=== PATIENT | female | born 1935 | race African-American/Black ===

== ENCOUNTER 2020-12-15 15:46 | Inpatient (IN) | payer MEDICARE, MEDICAID ==
[~2020-12-15] VITALS: Ht 152.4 cm; Wt 68.0 kg
[2020-12-15] MEDS ORDERED: MORPHINE SULFATE 2 MG/ML CPJ (NOT FOR IM USE) IV ONE (16:30)
[2020-12-15] MEDS ORDERED: SODIUM CHLORIDE 0.9% 500 ML IV ONE (16:30)
[2020-12-15] MEDS ORDERED: ONDANSETRON HCL 4MG/2ML INJ IV ONE (16:30)
[2020-12-15] MEDS ORDERED: PIPERACILLIN/TAZ 3.375G PREMIX 50 ML IV ONE (16:30)
[2020-12-15 16:51] LABS: INR 1.2; PROTHROMBIN TIME 12.6 sec (9.6-11.0)
[2020-12-15 16:52] LABS: MEAN CORPUSCULAR HEMOGLOBIN 26.3 pg (28.0-32.0); MEAN CORPUSCULAR VOLUME 82.4 fL (81.0-99.0); MEAN PLATELET VOLUME 8.6 fl (7.4-10.4); PLATELET 416 x1000/uL (130-400); RED BLOOD CELL COUNT 2.12 mill/uL (4.2-5.4); RED CELL DISTRIBUTION WIDTH 13.9 % (11.6-14.6)
[2020-12-15 16:59] LABS: CHLORIDE 105 mEq/L (98-107)
[2020-12-15 17:02] LABS: HEMATOCRIT. 17.5 % (36.0-48.0); HEMOGLOBIN. 5.6 g/dL (12.0-16.0)
[2020-12-15] MEDS ORDERED: ACETAMINOPHEN 325MG TABLET PO ONE (17:15)
[2020-12-15 17:25] LABS: PLATELET ESTIMATE SLIGHTLY INCREASED
[2020-12-15] MEDS ORDERED: NITROGLYCERIN 0.4MG TABLET SL SL PRN (18:15)
[2020-12-15] MEDS ORDERED: TRAMADOL 50MG TABLET PO PRN (18:15)
[2020-12-15] MEDS ORDERED: CLONIDINE 0.1MG TABLET PO PRN (18:15)
[2020-12-15] MEDS ORDERED: ACETAMINOPHEN 325MG TABLET PO PRN ×2 (18:15)
[2020-12-15] MEDS ORDERED: SODIUM BICARBONATE 8.4% 1 MEQ/ML 50ML SYR IV ONE (18:15)
[2020-12-15] MEDS ORDERED: ONDANSETRON HCL 4MG/2ML INJ IV PRN (18:15)
[2020-12-15] MEDS ORDERED: MAGNESIUM/ALUMINUM HYDROXIDE/SIMETHICONE 30ML UDC PO PRN (18:15)
[2020-12-15] MEDS ORDERED: PIPERACILLIN/TAZ 3.375G PREMIX 50 ML IV SCH (18:15)
[2020-12-15] MEDS ORDERED: DEXTROSE 50% WATER 50ML SYRINGE IV PRN (18:15)
[2020-12-15] MEDS ORDERED: DOCUSATE SODIUM 100MG CAPSULE PO PRN (18:15)
[2020-12-15] MEDS ORDERED: IPRATROPIUM/ALBUTEROL 0.5-3(2.5)MG/3ML NEB NEB PRN (18:15)
[2020-12-15] MEDS ORDERED: GUAIFENESIN 200MG/10ML SUGAR FREE UDC PO PRN (18:15)
[2020-12-15] MEDS: INSULIN LISPRO 100 UNITS/ML SUBCUT SCH ×2 (18:20→21:00)
[2020-12-15] MEDS: SODIUM CHLORIDE 0.9% 1,000 ML IV SCH (18:47)
[2020-12-15 19:09] LABS: TOTAL IRON BINDING CAPACITY 85 ug/dL (250-450)
[2020-12-15 19:24] LABS: FOLIC ACID (FOLATE) SERUM 11.2 ng/mL (>5.38)
[2020-12-15] MEDS ORDERED: ZOLPIDEM TARTRATE 5MG TABLET PO PRN (20:00)
[2020-12-15] MEDS ORDERED: ENOXAPARIN 30MG/0.3ML SYR SUBCUT SCH (20:00)
[2020-12-15] MEDS ORDERED: VANCOMYCIN 1250MG in DEXTROSE 5% WATER 250ML IV SCH (20:00)
[2020-12-15] MEDS: FAMOTIDINE 20MG TABLET PO SCH (20:00)
[2020-12-15] MEDS: BLOOD SUGAR DIAGNOSTIC STRIP TEST SCH (21:00)
[2020-12-15] MEDS: ASCORBIC ACID 500 MG TABLET PO SCH (21:02)
[2020-12-15] MEDS: PIPERACILLIN/TAZOBACTAM 2.25 G in DEXTROSE 5% WATER 50 ML IV SCH (21:37)
[2020-12-16] VITALS (8 sets, daily range): BP systolic 126–169; BP diastolic 53–72
[2020-12-16 00:06] LABS: CREATINE KINASE 461 IU/L (26-192)
[2020-12-16 05:15] LABS: MEAN CORPUSCULAR HEMOGLOBIN 25.8 pg (28.0-32.0); MEAN CORPUSCULAR VOLUME 82.7 fL (81.0-99.0); MEAN PLATELET VOLUME 8.6 fl (7.4-10.4); PLATELET 405 x1000/uL (130-400); RED BLOOD CELL COUNT 2.34 mill/uL (4.2-5.4); RED CELL DISTRIBUTION WIDTH 14.1 % (11.6-14.6)
[2020-12-16 05:27] LABS: CHLORIDE 105 mEq/L (98-107)
[2020-12-16 05:34] LABS: HEMATOCRIT. 19.3 % (36.0-48.0)
[2020-12-16 05:36] LABS: PHOSPHORUS 5.1 mg/dL (2.5-4.9)
[2020-12-16 05:37] LABS: CREATINE KINASE 359 IU/L (26-192)
[2020-12-16 05:42] LABS: CREATINE KINASE MB FRACTION 5.8 ng/mL (0.5-3.6)
[2020-12-16] MEDS: PIPERACILLIN/TAZOBACTAM 2.25 G in DEXTROSE 5% WATER 50 ML IV SCH ×3 (06:00→21:46)
[2020-12-16] MEDS: BLOOD SUGAR DIAGNOSTIC STRIP TEST SCH ×5 (06:24→21:46)
[2020-12-16] MEDS: INSULIN LISPRO 100 UNITS/ML SUBCUT SCH ×4 (07:00→22:00)
[2020-12-16] MEDS: SODIUM CHLORIDE 0.9% 1,000 ML IV SCH ×3 (07:12→21:45)
[2020-12-16 07:20] LABS: PLATELET ESTIMATE SLIGHTLY INCREASED
[2020-12-16] MEDS: CHOLECALCIFEROL (D3) 1000 UNIT TABLET PO SCH (09:00)
[2020-12-16] MEDS ORDERED: SODIUM BICARBONATE 4% (2.4MEQ) 5ML VIAL IV ONE (09:05)
[2020-12-16] MEDS ORDERED: LIDOCAINE HCL 1% 20ML VIAL (Pyxis) INJ ONE (09:05)
[2020-12-16] MEDS: ZINC SULFATE 220 MG ( 50 ) CAPSULE PO SCH (09:24)
[2020-12-16] MEDS: ASCORBIC ACID 500 MG TABLET PO SCH ×2 (09:24→22:00)
[2020-12-16] MEDS ORDERED: BACITRACIN 15GM TUBE TOP ONE (16:17)
[2020-12-16] MEDS ORDERED: BACITRACIN 50,000 UNITS/VIAL ONE (16:17)
[2020-12-16] MEDS ORDERED: VANCOMYCIN HCL 1 GM/VIAL ONE ×2 (16:17→18:52)
[2020-12-16] MEDS ORDERED: BUPIVACAINE HCL 0.5% (5MG/ML) 50ML ONE (16:17)
[2020-12-16] MEDS ORDERED: SODIUM CHLORIDE 0.9% INJ 10ML FLUSH IVF ONE (16:18)
[2020-12-16 16:43] LABS: HEMATOCRIT. 39.7 % (36.0-48.0); HEMOGLOBIN. 13.2 g/dL (12.0-16.0); MEAN CORPUSCULAR HEMOGLOBIN 28.7 pg (28.0-32.0); MEAN CORPUSCULAR VOLUME 86.5 fL (81.0-99.0); MEAN PLATELET VOLUME 8.9 fl (7.4-10.4); PLATELET 340 x1000/uL (130-400); RED BLOOD CELL COUNT 4.58 mill/uL (4.2-5.4); RED CELL DISTRIBUTION WIDTH 15.3 % (11.6-14.6)
[2020-12-16] MEDS ORDERED: VANCOMYCIN 750 MG PREMIX 150 ML IV SCH (17:00)
[2020-12-16 17:16] LABS: PLATELET ESTIMATE NORMAL
[2020-12-16] MEDS ORDERED: VALS40TA11 MT (18:20)
[2020-12-16] MEDS ORDERED: AMLO2.5T45 MT (18:20)
[2020-12-16] MEDS ORDERED: FURO20TA4 MT (18:20)
[2020-12-16] MEDS ORDERED: LISI2.5T47 MT (18:20)
[2020-12-16] MEDS ORDERED: METO25TA6 MT (18:20)
[2020-12-16] MEDS ORDERED: ONDANSETRON HCL 4MG/2ML INJ IV PRN (19:30)
[2020-12-16] MEDS ORDERED: LABETALOL 5MG/ML SYR 20 MG/4 ML SYRINGE IV PRN (19:30)
[2020-12-16] MEDS ORDERED: MEPERIDINE HCL/PF 25MG/ML CPJ IV PRN (19:30)
[2020-12-16] MEDS: FAMOTIDINE 20MG TABLET PO SCH (20:00)
[2020-12-17] VITALS: BP 108/55
[2020-12-17 04:00] VITALS: BP 111/51
[2020-12-17] MEDS: PIPERACILLIN/TAZOBACTAM 2.25 G in DEXTROSE 5% WATER 50 ML IV SCH ×3 (05:20→21:37)
[2020-12-17] MEDS: BLOOD SUGAR DIAGNOSTIC STRIP TEST SCH ×4 (07:37→21:10)
[2020-12-17] MEDS: INSULIN LISPRO 100 UNITS/ML SUBCUT SCH ×4 (07:38→21:00)
[2020-12-17 08:29] VITALS: BP 118/55
[2020-12-17] MEDS: ZINC SULFATE 220 MG ( 50 ) CAPSULE PO SCH (09:09)
[2020-12-17] MEDS: ASCORBIC ACID 500 MG TABLET PO SCH ×2 (09:09→21:00)
[2020-12-17] MEDS: CHOLECALCIFEROL (D3) 1000 UNIT TABLET PO SCH (09:09)
[2020-12-17] MEDS: SODIUM CHLORIDE 0.9% 1,000 ML IV SCH ×2 (09:51→21:44)
[2020-12-17] MEDS ORDERED: TUBERCULIN,PURIF.PROT.DERIV. 5 TU/0.1 ML SYR ID ONE (10:00)
[2020-12-17 12:14] VITALS: BP 130/53
[2020-12-17 12:40] LABS: HEMATOCRIT. 30.7 % (36.0-48.0); HEMOGLOBIN. 10.1 g/dL (12.0-16.0); MEAN CORPUSCULAR HEMOGLOBIN 28.7 pg (28.0-32.0); MEAN CORPUSCULAR VOLUME 87.3 fL (81.0-99.0); MEAN PLATELET VOLUME 8.7 fl (7.4-10.4); PLATELET 313 x1000/uL (130-400); RED BLOOD CELL COUNT 3.52 mill/uL (4.2-5.4)
[2020-12-17 12:47] LABS: CHLORIDE 108 mEq/L (98-107)
[2020-12-17 13:29] LABS: HEPATITIS B SURFACE AB 3.3 mIU/mL
[2020-12-17 13:39] LABS: HEPATITIS B SURFACE ANTIGEN NEGATIVE
[2020-12-17 14:09] LABS: HEPATITIS A AB IGM NEGATIVE (NEGATIVE)
[2020-12-17 14:57] LABS: PLATELET ESTIMATE NORMAL
[2020-12-17 16:27] VITALS: BP 117/47
[2020-12-17 20:00] VITALS: BP 129/63
[2020-12-17] MEDS ORDERED: HEPARIN 5000 UNITS/ML VIAL IV NR (22:30)
[2020-12-18] VITALS: BP 114/43
[2020-12-18 04:00] VITALS: BP 124/62
[2020-12-18] MEDS: PIPERACILLIN/TAZOBACTAM 2.25 G in DEXTROSE 5% WATER 50 ML IV SCH ×3 (05:23→21:18)
[2020-12-18] MEDS: BLOOD SUGAR DIAGNOSTIC STRIP TEST SCH ×4 (06:45→21:10)
[2020-12-18] MEDS: INSULIN LISPRO 100 UNITS/ML SUBCUT SCH ×4 (06:46→21:00)
[2020-12-18 08:00] VITALS: BP 161/53
[2020-12-18 08:24] LABS: HEMOGLOBIN. 8.9 g/dL (12.0-16.0); MEAN CORPUSCULAR HEMOGLOBIN 29.1 pg (28.0-32.0); MEAN PLATELET VOLUME 9.5 fl (7.4-10.4); PLATELET 229 x1000/uL (130-400); RED BLOOD CELL COUNT 3.05 mill/uL (4.2-5.4); RED CELL DISTRIBUTION WIDTH 15.8 % (11.6-14.6)
[2020-12-18] MEDS: ASCORBIC ACID 500 MG TABLET PO SCH ×2 (11:41→21:18)
[2020-12-18] MEDS: CHOLECALCIFEROL (D3) 1000 UNIT TABLET PO SCH (11:41)
[2020-12-18] MEDS: ZINC SULFATE 220 MG ( 50 ) CAPSULE PO SCH (11:41)
[2020-12-18 12:00] VITALS: BP 106/54
[2020-12-18] MEDS: SODIUM CHLORIDE 0.9% 1,000 ML IV SCH (13:21)
[2020-12-18] MEDS: DILTIAZEM HCL 30MG TABLET PO SCH ×2 (13:30→21:19)
[2020-12-18 16:00] VITALS: BP 116/68
[2020-12-18 16:38] LABS: PLATELET ESTIMATE NORMAL
[2020-12-18 20:00] VITALS: BP 116/52
[2020-12-18] MEDS: FAMOTIDINE 20MG TABLET PO SCH (21:18)
[2020-12-19] VITALS: BP 105/53
[2020-12-19] MEDS: SODIUM CHLORIDE 0.9% 1,000 ML IV SCH ×2 (03:34→09:00)
[2020-12-19 04:00] VITALS: BP 110/52
[2020-12-19] MEDS: PIPERACILLIN/TAZOBACTAM 2.25 G in DEXTROSE 5% WATER 50 ML IV SCH ×2 (06:14→18:20)
[2020-12-19] MEDS: BLOOD SUGAR DIAGNOSTIC STRIP TEST SCH ×4 (06:14→21:00)
[2020-12-19] MEDS: DILTIAZEM HCL 30MG TABLET PO SCH ×3 (06:14→22:01)
[2020-12-19] MEDS: INSULIN LISPRO 100 UNITS/ML SUBCUT SCH ×4 (06:15→21:00)
[2020-12-19 06:20] LABS: HEMOGLOBIN. 9.2 g/dL (12.0-16.0); MEAN CORPUSCULAR HEMOGLOBIN 29.4 pg (28.0-32.0); MEAN CORPUSCULAR VOLUME 89.1 fL (81.0-99.0); PLATELET 258 x1000/uL (130-400); RED BLOOD CELL COUNT 3.14 mill/uL (4.2-5.4); RED CELL DISTRIBUTION WIDTH 15.8 % (11.6-14.6)
[2020-12-19 08:00] VITALS: BP 119/56
[2020-12-19] MEDS: ZINC SULFATE 220 MG ( 50 ) CAPSULE PO SCH (09:22)
[2020-12-19] MEDS: ASCORBIC ACID 500 MG TABLET PO SCH ×2 (09:22→22:00)
[2020-12-19] MEDS: CHOLECALCIFEROL (D3) 1000 UNIT TABLET PO SCH (09:22)
[2020-12-19 12:00] VITALS: BP 99/46
[2020-12-19 13:53] LABS: PLATELET ESTIMATE NORMAL
[2020-12-19] MEDS ORDERED: VANCOMYCIN 1 G PREMIX 200 ML IV SCH (14:00)
[2020-12-19 16:00] VITALS: BP 128/63
[2020-12-19] MEDS ORDERED: DIATR MEGLU/DIATRIZOATE SOLN 30ML PO SCH (16:45)
[2020-12-19] MEDS: METRONIDAZOLE 250MG TABLET PO SCH (18:17)
[2020-12-19 20:00] VITALS: BP 113/32
[2020-12-19] MEDS: FAMOTIDINE 20MG TABLET PO SCH ×2 (22:00→22:32)
[2020-12-19] MEDS: MEROPENEM 500 MG in SODIUM CHLORIDE 0.9% 50 ML IV SCH (22:00)
[2020-12-20] VITALS: BP 130/56
[2020-12-20] MEDS: METRONIDAZOLE 250MG TABLET PO SCH ×3 (00:24→14:30)
[2020-12-20 04:00] VITALS: BP 137/56
[2020-12-20] MEDS: DILTIAZEM HCL 30MG TABLET PO SCH ×3 (05:18→17:41)
[2020-12-20] MEDS: BLOOD SUGAR DIAGNOSTIC STRIP TEST SCH ×4 (06:13→21:00)
[2020-12-20] MEDS: ASCORBIC ACID 500 MG TABLET PO SCH ×2 (09:11→22:21)
[2020-12-20] MEDS: ZINC SULFATE 220 MG ( 50 ) CAPSULE PO SCH (09:11)
[2020-12-20] MEDS: CHOLECALCIFEROL (D3) 1000 UNIT TABLET PO SCH (09:11)
[2020-12-20] MEDS: INSULIN LISPRO 100 UNITS/ML SUBCUT SCH ×4 (09:13→21:00)
[2020-12-20] MEDS: SILDENAFIL CITRATE 20MG TABLET PO SCH ×2 (14:31→22:22)
[2020-12-20] MEDS: SODIUM CHLORIDE 0.9% 1,000 ML IV SCH (14:31)
[2020-12-20 15:36] LABS: HEMATOCRIT. 27.9 % (36.0-48.0); MEAN CORPUSCULAR HEMOGLOBIN 28.2 pg (28.0-32.0); MEAN CORPUSCULAR VOLUME 88.1 fL (81.0-99.0); MEAN PLATELET VOLUME 9.6 fl (7.4-10.4); PLATELET 233 x1000/uL (130-400); RED BLOOD CELL COUNT 3.17 mill/uL (4.2-5.4); RED CELL DISTRIBUTION WIDTH 15.9 % (11.6-14.6)
[2020-12-20 16:00] VITALS: BP 112/46
[2020-12-20] MEDS: VANCOMYCIN HCL 1000 MG/20 ML ORAL PO SCH (17:42)
[2020-12-20 17:45] LABS: NUCLEATED RED BLOOD CELLS 1 /100 WBC; PLATELET ESTIMATE NORMAL
[2020-12-20 20:00] VITALS: BP 129/72
[2020-12-20] MEDS: MEROPENEM 500 MG in SODIUM CHLORIDE 0.9% 50 ML IV SCH (22:19)
[2020-12-20] MEDS: FAMOTIDINE 20MG TABLET PO SCH (22:20)
[2020-12-20] MEDS: METRONIDAZOLE 500 MG PREMIX 100 ML IV SCH (22:21)
[2020-12-21] VITALS (7 sets, daily range): BP systolic 103–140; BP diastolic 42–57
[2020-12-21] MEDS: DILTIAZEM HCL 30MG TABLET PO SCH ×4 (00:23→17:37)
[2020-12-21] MEDS: VANCOMYCIN HCL 1000 MG/20 ML ORAL PO SCH ×4 (00:23→17:36)
[2020-12-21] MEDS: SILDENAFIL CITRATE 20MG TABLET PO SCH ×3 (07:41→21:03)
[2020-12-21] MEDS: BLOOD SUGAR DIAGNOSTIC STRIP TEST SCH ×4 (07:42→21:03)
[2020-12-21] MEDS: INSULIN LISPRO 100 UNITS/ML SUBCUT SCH ×4 (07:49→21:25)
[2020-12-21] MEDS: SODIUM CHLORIDE 0.9% 1,000 ML IV SCH (09:00)
[2020-12-21 09:43] LABS: HEMATOCRIT. 27.8 % (36.0-48.0); MEAN CORPUSCULAR HEMOGLOBIN 28.6 pg (28.0-32.0); MEAN CORPUSCULAR VOLUME 88.1 fL (81.0-99.0); MEAN PLATELET VOLUME 9.5 fl (7.4-10.4); PLATELET 233 x1000/uL (130-400); RED BLOOD CELL COUNT 3.15 mill/uL (4.2-5.4); RED CELL DISTRIBUTION WIDTH 15.5 % (11.6-14.6)
[2020-12-21] MEDS: ZINC SULFATE 220 MG ( 50 ) CAPSULE PO SCH (10:02)
[2020-12-21] MEDS: ASCORBIC ACID 500 MG TABLET PO SCH ×2 (10:02→21:02)
[2020-12-21] MEDS: METRONIDAZOLE 500 MG PREMIX 100 ML IV SCH ×2 (10:02→21:02)
[2020-12-21] MEDS: CHOLECALCIFEROL (D3) 1000 UNIT TABLET PO SCH (10:02)
[2020-12-21 13:36] LABS: PLATELET ESTIMATE NORMAL
[2020-12-21] MEDS: FOLIC ACID/VITAMIN B COMP W-C TABLET PO SCH (15:20)
[2020-12-21] MEDS: MEROPENEM 500 MG in SODIUM CHLORIDE 0.9% 50 ML IV SCH ×2 (17:37→21:02)
[2020-12-21] MEDS: FAMOTIDINE 20MG TABLET PO SCH (21:02)
[2020-12-22] VITALS: BP 120/85
[2020-12-22] MEDS: DILTIAZEM HCL 30MG TABLET PO SCH ×4 (00:09→18:31)
[2020-12-22] MEDS: VANCOMYCIN HCL 1000 MG/20 ML ORAL PO SCH ×4 (00:09→22:05)
[2020-12-22 04:00] VITALS: BP 124/56
[2020-12-22] MEDS: SILDENAFIL CITRATE 20MG TABLET PO SCH ×3 (06:13→22:07)
[2020-12-22] MEDS: BLOOD SUGAR DIAGNOSTIC STRIP TEST SCH ×4 (06:13→21:00)
[2020-12-22] MEDS: INSULIN LISPRO 100 UNITS/ML SUBCUT SCH ×4 (07:40→21:00)
[2020-12-22 09:13] VITALS: BP 129/56
[2020-12-22] MEDS: METRONIDAZOLE 500 MG PREMIX 100 ML IV SCH (10:25)
[2020-12-22] MEDS: SODIUM CHLORIDE 0.9% 1,000 ML IV SCH (10:25)
[2020-12-22] MEDS: FOLIC ACID/VITAMIN B COMP W-C TABLET PO SCH (10:27)
[2020-12-22] MEDS: ZINC SULFATE 220 MG ( 50 ) CAPSULE PO SCH (10:27)
[2020-12-22] MEDS: CHOLECALCIFEROL (D3) 1000 UNIT TABLET PO SCH (10:27)
[2020-12-22] MEDS: ASCORBIC ACID 500 MG TABLET PO SCH ×2 (10:27→22:07)
[2020-12-22 11:52] LABS: HEMOGLOBIN. 8.2 g/dL (12.0-16.0); MEAN CORPUSCULAR HEMOGLOBIN 28.4 pg (28.0-32.0); MEAN CORPUSCULAR VOLUME 86.2 fL (81.0-99.0); MEAN PLATELET VOLUME 9.2 fl (7.4-10.4); PLATELET 217 x1000/uL (130-400); RED CELL DISTRIBUTION WIDTH 15.4 % (11.6-14.6)
[2020-12-22 12:00] VITALS: BP_SYST 145; BP_SYST 152; BP_DIAS 56; BP_DIAS 65
[2020-12-22 14:47] LABS: PLATELET ESTIMATE NORMAL
[2020-12-22 20:00] VITALS: BP 134/54
[2020-12-22] MEDS: FAMOTIDINE 20MG TABLET PO SCH (22:07)
[2020-12-22] MEDS: MEROPENEM 500 MG in SODIUM CHLORIDE 0.9% 50 ML IV SCH (22:13)
[2020-12-23] VITALS: BP 141/57
[2020-12-23] MEDS: METRONIDAZOLE 500 MG PREMIX 100 ML IV SCH ×2 (01:01→11:53)
[2020-12-23] MEDS: DILTIAZEM HCL 30MG TABLET PO SCH ×4 (01:01→17:33)
[2020-12-23 04:00] VITALS: BP 140/71
[2020-12-23 07:09] LABS: HEMATOCRIT. 23.9 % (36.0-48.0); HEMOGLOBIN. 7.7 g/dL (12.0-16.0); MEAN CORPUSCULAR HEMOGLOBIN 28.4 pg (28.0-32.0); MEAN PLATELET VOLUME 9.5 fl (7.4-10.4); PLATELET 210 x1000/uL (130-400); RED BLOOD CELL COUNT 2.72 mill/uL (4.2-5.4); RED CELL DISTRIBUTION WIDTH 15.8 % (11.6-14.6)
[2020-12-23] MEDS: BLOOD SUGAR DIAGNOSTIC STRIP TEST SCH ×4 (07:13→21:08)
[2020-12-23] MEDS: SILDENAFIL CITRATE 20MG TABLET PO SCH ×3 (07:14→21:07)
[2020-12-23] MEDS: INSULIN LISPRO 100 UNITS/ML SUBCUT SCH ×4 (07:25→21:00)
[2020-12-23 08:10] VITALS: BP 119/75
[2020-12-23] MEDS: CHOLECALCIFEROL (D3) 1000 UNIT TABLET PO SCH (11:52)
[2020-12-23] MEDS: ZINC SULFATE 220 MG ( 50 ) CAPSULE PO SCH (11:53)
[2020-12-23] MEDS: FOLIC ACID/VITAMIN B COMP W-C TABLET PO SCH (11:53)
[2020-12-23] MEDS: LOSARTAN POTASSIUM 50 MG TABLET PO SCH ×2 (11:53→21:07)
[2020-12-23] MEDS: ASCORBIC ACID 500 MG TABLET PO SCH ×2 (11:53→21:08)
[2020-12-23] MEDS: SODIUM CHLORIDE 0.9% 1,000 ML IV SCH (11:54)
[2020-12-23 12:00] VITALS: BP 155/57
[2020-12-23] MEDS: VANCOMYCIN HCL 1000 MG/20 ML ORAL PO SCH ×3 (15:10→17:31)
[2020-12-23 15:21] LABS: PLATELET ESTIMATE NORMAL
[2020-12-23 16:00] VITALS: BP 136/96
[2020-12-23 20:00] VITALS: BP 148/60
[2020-12-23] MEDS: FAMOTIDINE 20MG TABLET PO SCH (21:08)
[2020-12-24] VITALS: BP 139/60
[2020-12-24] MEDS: DILTIAZEM HCL 30MG TABLET PO SCH ×5 (00:15→23:43)
[2020-12-24] MEDS: VANCOMYCIN HCL 1000 MG/20 ML ORAL PO SCH ×5 (00:15→23:43)
[2020-12-24 04:00] VITALS: BP 119/74
[2020-12-24] MEDS: SILDENAFIL CITRATE 20MG TABLET PO SCH ×3 (06:11→23:42)
[2020-12-24] MEDS: BLOOD SUGAR DIAGNOSTIC STRIP TEST SCH ×4 (06:53→20:29)
[2020-12-24] MEDS: INSULIN LISPRO 100 UNITS/ML SUBCUT SCH ×5 (06:53→20:29)
[2020-12-24 07:41] LABS: HEMATOCRIT. 23.9 % (36.0-48.0); HEMOGLOBIN. 7.9 g/dL (12.0-16.0); MEAN CORPUSCULAR HEMOGLOBIN 28.6 pg (28.0-32.0); MEAN CORPUSCULAR VOLUME 87.1 fL (81.0-99.0); MEAN PLATELET VOLUME 9.5 fl (7.4-10.4); PLATELET 206 x1000/uL (130-400); RED BLOOD CELL COUNT 2.75 mill/uL (4.2-5.4); RED CELL DISTRIBUTION WIDTH 15.6 % (11.6-14.6)
[2020-12-24 08:00] VITALS: BP 141/63
[2020-12-24] MEDS: FOLIC ACID/VITAMIN B COMP W-C TABLET PO SCH (09:42)
[2020-12-24] MEDS: ASCORBIC ACID 500 MG TABLET PO SCH ×2 (09:42→23:41)
[2020-12-24] MEDS: CHOLECALCIFEROL (D3) 1000 UNIT TABLET PO SCH (09:43)
[2020-12-24] MEDS: ZINC SULFATE 220 MG ( 50 ) CAPSULE PO SCH (09:43)
[2020-12-24] MEDS: LOSARTAN POTASSIUM 50 MG TABLET PO SCH ×2 (09:46→21:00)
[2020-12-24] MEDS: SODIUM CHLORIDE 0.9% 1,000 ML IV SCH (10:36)
[2020-12-24 12:00] VITALS: BP 169/76
[2020-12-24 16:00] VITALS: BP 122/65
[2020-12-24 20:00] VITALS: BP 104/43
[2020-12-24] MEDS ORDERED: EPOETIN ALFA 10000UNITS/ML VIAL SUBCUT ONE (20:45)
[2020-12-24] MEDS ORDERED: EPOETIN ALFA-EPBX 10,000 UNIT/ML VIAL SUBCUT NR (22:00)
[2020-12-24] MEDS: MEROPENEM 500 MG in SODIUM CHLORIDE 0.9% 50 ML IV SCH (23:08)
[2020-12-24] MEDS: FAMOTIDINE 20MG TABLET PO SCH (23:42)
[2020-12-25] VITALS: BP 118/70
[2020-12-25 04:00] VITALS: BP 120/70
[2020-12-25] MEDS: BLOOD SUGAR DIAGNOSTIC STRIP TEST SCH ×4 (05:57→20:53)
[2020-12-25] MEDS: INSULIN LISPRO 100 UNITS/ML SUBCUT SCH ×4 (07:40→20:45)
[2020-12-25 08:00] VITALS: BP 137/58
[2020-12-25] MEDS: ZINC SULFATE 220 MG ( 50 ) CAPSULE PO SCH (08:39)
[2020-12-25] MEDS: CHOLECALCIFEROL (D3) 1000 UNIT TABLET PO SCH (08:39)
[2020-12-25] MEDS: LOSARTAN POTASSIUM 50 MG TABLET PO SCH ×2 (08:39→20:38)
[2020-12-25] MEDS: FOLIC ACID/VITAMIN B COMP W-C TABLET PO SCH (08:39)
[2020-12-25] MEDS: ASCORBIC ACID 500 MG TABLET PO SCH ×2 (08:44→20:38)
[2020-12-25] MEDS: SODIUM CHLORIDE 0.9% 1,000 ML IV SCH (08:49)
[2020-12-25 12:00] VITALS: BP 163/68
[2020-12-25] MEDS: DILTIAZEM HCL 30MG TABLET PO SCH ×2 (12:25→17:26)
[2020-12-25] MEDS: VANCOMYCIN HCL 1000 MG/20 ML ORAL PO SCH ×2 (12:28→17:28)
[2020-12-25] MEDS: SILDENAFIL CITRATE 20MG TABLET PO SCH ×2 (14:19→21:00)
[2020-12-25 16:00] VITALS: BP 145/70
[2020-12-25 20:00] VITALS: BP 165/82
[2020-12-25 20:23] LABS: PLATELET ESTIMATE NORMAL
[2020-12-25] MEDS: FAMOTIDINE 20MG TABLET PO SCH (20:38)
[2020-12-25] MEDS: MEROPENEM 500 MG in SODIUM CHLORIDE 0.9% 50 ML IV SCH (20:38)
[2020-12-26] VITALS: BP 130/73
[2020-12-26] MEDS: DILTIAZEM HCL 30MG TABLET PO SCH ×2 (01:52→06:18)
[2020-12-26] MEDS: VANCOMYCIN HCL 1000 MG/20 ML ORAL PO SCH ×3 (01:55→12:37)
[2020-12-26 04:00] VITALS: BP 178/71
[2020-12-26] MEDS: SILDENAFIL CITRATE 20MG TABLET PO SCH ×3 (06:17→21:40)
[2020-12-26] MEDS: BLOOD SUGAR DIAGNOSTIC STRIP TEST SCH ×4 (06:18→20:49)
[2020-12-26] MEDS: INSULIN LISPRO 100 UNITS/ML SUBCUT SCH ×4 (06:18→21:00)
[2020-12-26 07:35] LABS: HEMATOCRIT. 22.6 % (36.0-48.0); HEMOGLOBIN. 7.4 g/dL (12.0-16.0); MEAN CORPUSCULAR HEMOGLOBIN 28.3 pg (28.0-32.0); PLATELET 176 x1000/uL (130-400); RED BLOOD CELL COUNT 2.63 mill/uL (4.2-5.4); RED CELL DISTRIBUTION WIDTH 15.7 % (11.6-14.6)
[2020-12-26 08:00] VITALS: BP 158/92
[2020-12-26] MEDS: FOLIC ACID/VITAMIN B COMP W-C TABLET PO SCH (09:29)
[2020-12-26] MEDS: LOSARTAN POTASSIUM 50 MG TABLET PO SCH ×2 (09:30→20:49)
[2020-12-26] MEDS: CHOLECALCIFEROL (D3) 1000 UNIT TABLET PO SCH (09:30)
[2020-12-26] MEDS: ZINC SULFATE 220 MG ( 50 ) CAPSULE PO SCH (09:30)
[2020-12-26] MEDS: ASCORBIC ACID 500 MG TABLET PO SCH ×2 (09:30→20:49)
[2020-12-26 12:00] VITALS: BP 167/75
[2020-12-26] MEDS: DILTIAZEM HCL 60MG TABLET NG SCH ×2 (12:37→18:15)
[2020-12-26 14:28] LABS: PLATELET ESTIMATE NORMAL
[2020-12-26 16:00] VITALS: BP 171/83
[2020-12-26 20:00] VITALS: BP 152/59
[2020-12-26] MEDS: MEROPENEM 500 MG in SODIUM CHLORIDE 0.9% 50 ML IV SCH (20:49)
[2020-12-26] MEDS: FAMOTIDINE 20MG TABLET PO SCH (20:49)
[2020-12-27] VITALS: BP 128/80
[2020-12-27] MEDS: DILTIAZEM HCL 60MG TABLET NG SCH ×4 (00:38→19:54)
[2020-12-27 04:00] VITALS: BP 159/52
[2020-12-27] MEDS: SILDENAFIL CITRATE 20MG TABLET PO SCH ×3 (06:27→21:56)
[2020-12-27] MEDS: BLOOD SUGAR DIAGNOSTIC STRIP TEST SCH ×4 (06:28→21:00)
[2020-12-27] MEDS: INSULIN LISPRO 100 UNITS/ML SUBCUT SCH ×4 (07:40→22:02)
[2020-12-27 08:00] VITALS: BP 156/58
[2020-12-27] MEDS: LOSARTAN POTASSIUM 50 MG TABLET PO SCH ×2 (09:03→21:56)
[2020-12-27] MEDS: FOLIC ACID/VITAMIN B COMP W-C TABLET PO SCH (09:03)
[2020-12-27] MEDS: ASCORBIC ACID 500 MG TABLET PO SCH ×2 (09:03→21:56)
[2020-12-27] MEDS: CHOLECALCIFEROL (D3) 1000 UNIT TABLET PO SCH (09:03)
[2020-12-27] MEDS: ZINC SULFATE 220 MG ( 50 ) CAPSULE PO SCH (09:03)
[2020-12-27 11:28] LABS: BASOPHILS % 0.3 % (0.0-2.0); EOSINOPHILS % 0.3 % (0.0-5.0); HEMATOCRIT. 23.1 % (36.0-48.0); HEMOGLOBIN. 7.7 g/dL (12.0-16.0); LYMPHOCYTES % 9.3 % (20.0-50.0); MEAN CORPUSCULAR HEMOGLOBIN 28.5 pg (28.0-32.0); MEAN CORPUSCULAR VOLUME 85.8 fL (81.0-99.0); MEAN PLATELET VOLUME 9.7 fl (7.4-10.4); MONOCYTES % 4.9 % (2.0-8.0); NEUTROPHILS % 85.2 % (40.0-76.0); PLATELET 161 x1000/uL (130-400); RED CELL DISTRIBUTION WIDTH 15.7 % (11.6-14.6)
[2020-12-27 11:55] LABS: CHLORIDE 110 mEq/L (98-107)
[2020-12-27 12:00] VITALS: BP 99/63
[2020-12-27 16:00] VITALS: BP 151/71
[2020-12-27 20:00] VITALS: BP 145/60
[2020-12-27] MEDS: FAMOTIDINE 20MG TABLET PO SCH (21:56)
[2020-12-28] VITALS: BP 138/66
[2020-12-28] MEDS: DILTIAZEM HCL 60MG TABLET NG SCH ×5 (02:06→21:14)
[2020-12-28 04:40] VITALS: BP 125/70
[2020-12-28] MEDS: BLOOD SUGAR DIAGNOSTIC STRIP TEST SCH ×4 (04:55→19:53)
[2020-12-28] MEDS: INSULIN LISPRO 100 UNITS/ML SUBCUT SCH ×4 (05:10→21:00)
[2020-12-28 06:28] LABS: BASOPHILS % 0.5 % (0.0-2.0); EOSINOPHILS % 0.6 % (0.0-5.0); HEMATOCRIT. 23.6 % (36.0-48.0); HEMOGLOBIN. 7.7 g/dL (12.0-16.0); MEAN CORPUSCULAR HEMOGLOBIN 28.4 pg (28.0-32.0); MEAN CORPUSCULAR VOLUME 87.1 fL (81.0-99.0); MEAN PLATELET VOLUME 10.1 fl (7.4-10.4); MONOCYTES % 5.6 % (2.0-8.0); NEUTROPHILS % 81.3 % (40.0-76.0); PLATELET 190 x1000/uL (130-400); RED BLOOD CELL COUNT 2.71 mill/uL (4.2-5.4); RED CELL DISTRIBUTION WIDTH 16.3 % (11.6-14.6)
[2020-12-28] MEDS: SILDENAFIL CITRATE 20MG TABLET PO SCH ×3 (06:29→21:14)
[2020-12-28 08:00] VITALS: BP 148/68
[2020-12-28] MEDS: LOSARTAN POTASSIUM 50 MG TABLET PO SCH ×2 (09:00→21:19)
[2020-12-28] MEDS: CHOLECALCIFEROL (D3) 1000 UNIT TABLET PO SCH (10:24)
[2020-12-28] MEDS: FOLIC ACID/VITAMIN B COMP W-C TABLET PO SCH (10:24)
[2020-12-28] MEDS: ASCORBIC ACID 500 MG TABLET PO SCH ×2 (10:24→21:19)
[2020-12-28] MEDS: ZINC SULFATE 220 MG ( 50 ) CAPSULE PO SCH (10:24)
[2020-12-28 12:00] VITALS: BP 145/60
[2020-12-28] MEDS ORDERED: EPOETIN ALFA-EPBX 4,000 UNIT/ML VIAL SUBCUT NR (15:00)
[2020-12-28 16:00] VITALS: BP 141/68
[2020-12-28 20:00] VITALS: BP 150/66
[2020-12-28] MEDS: FAMOTIDINE 20MG TABLET PO SCH (21:19)
[2020-12-29] VITALS: BP 149/66
[2020-12-29] MEDS: VANCOMYCIN HCL 1000 MG/20 ML ORAL PO SCH ×3 (01:04→12:19)
[2020-12-29 04:00] VITALS: BP 146/80
[2020-12-29] MEDS: BLOOD SUGAR DIAGNOSTIC STRIP TEST SCH ×2 (04:58→12:19)
[2020-12-29] MEDS: SILDENAFIL CITRATE 20MG TABLET PO SCH ×2 (05:03→14:00)
[2020-12-29] MEDS: DILTIAZEM HCL 60MG TABLET NG SCH (05:03)
[2020-12-29] MEDS: INSULIN LISPRO 100 UNITS/ML SUBCUT SCH ×2 (05:13→12:40)
[2020-12-29 07:18] LABS: HEMATOCRIT. 22.4 % (36.0-48.0); HEMOGLOBIN. 7.3 g/dL (12.0-16.0); MEAN CORPUSCULAR HEMOGLOBIN 28.3 pg (28.0-32.0); MEAN CORPUSCULAR VOLUME 86.4 fL (81.0-99.0); MEAN PLATELET VOLUME 9.7 fl (7.4-10.4); PLATELET 170 x1000/uL (130-400)
[2020-12-29] MEDS ORDERED: SODIUM BICARBONATE 4% (2.4MEQ) 5ML VIAL IV ONE (07:59)
[2020-12-29] MEDS ORDERED: LIDOCAINE HCL 1% 20ML VIAL (Pyxis) INJ ONE (07:59)
[2020-12-29 08:00] VITALS: BP 143/64
[2020-12-29] MEDS ORDERED: EPOETIN ALFA 10000UNITS/ML VIAL SUBCUT SCH (09:00)
[2020-12-29] MEDS ORDERED: POTASSIUM CHLORIDE 20MEQ TABLET SR PO NR (09:00)
[2020-12-29] MEDS: ASCORBIC ACID 500 MG TABLET PO SCH (09:50)
[2020-12-29] MEDS: ZINC SULFATE 220 MG ( 50 ) CAPSULE PO SCH (09:51)
[2020-12-29] MEDS: FOLIC ACID/VITAMIN B COMP W-C TABLET PO SCH (09:51)
[2020-12-29] MEDS: LOSARTAN POTASSIUM 50 MG TABLET PO SCH (09:51)
[2020-12-29] MEDS: CHOLECALCIFEROL (D3) 1000 UNIT TABLET PO SCH (09:51)
[2020-12-29 12:00] VITALS: BP 164/52
[2020-12-29 13:26] VITALS: BP 164/52
[2020-12-29 19:33] LABS: PLATELET ESTIMATE NORMAL
[2020-12-30] MEDS ORDERED: DILTIAZEM HCL 180MG CAPSULE CD 24HR PO SCH (09:00)
[2020-12-31] MEDS ORDERED: EPOETIN ALFA 10000UNITS/ML VIAL SUBCUT SCH (21:00)
== END 2020-12-29 15:00 | DRG 853 ==
LOC: ER 15:46 → MICUSO 17:38 → SUPCPDRO 19:39 → 8WST 12-16 11:35
PROVIDERS: ADMIT Internal Medicine; ATTEND Internal Medicine
PROC: 30233N1 Transfusion of Nonautologous Red Blood Cells into Peripheral Vein, Percutaneous Approach (ICD-10-PCS; 2020-12-16)
PROC: 05HM33Z Insertion of Infusion Device into Right Internal Jugular Vein, Percutaneous Approach (ICD-10-PCS; 2020-12-16)
PROC: B543ZZA Ultrasonography of Right Jugular Veins, Guidance (ICD-10-PCS; 2020-12-16)
PROC: 5A1D70Z Performance of Urinary Filtration, Intermittent, Less than 6 Hours Per Day (ICD-10-PCS; 2020-12-19)
PROC: 0Y6H0Z3 Detachment at Right Lower Leg, Low, Open Approach (ICD-10-PCS; principal; 2020-12-20)
PROC: 2W3LX2Z Immobilization of Right Lower Extremity using Cast (ICD-10-PCS; 2020-12-20)
DX: A41.9 Sepsis, unspecified organism (principal); A48.0 Gas gangrene; E43 Unspecified severe protein-calorie malnutrition; J69.0 Pneumonitis due to inhalation of food and vomit; M72.6 Necrotizing fasciitis; N17.0 Acute kidney failure with tubular necrosis; N18.6 End stage renal disease; G92 Toxic encephalopathy; E11.52 Type 2 diabetes mellitus with diabetic peripheral angiopathy with gangrene; E87.2 Acidosis; I82.501 Chronic embolism and thrombosis of unspecified deep veins of right lower extremity; J91.8 Pleural effusion in other conditions classified elsewhere; T79.7XXA Traumatic subcutaneous emphysema, initial encounter; I12.0 Hypertensive chronic kidney disease with stage 5 chronic kidney disease or end stage renal disease; R65.20 Severe sepsis without septic shock; D64.9 Anemia, unspecified; R19.7 Diarrhea, unspecified; D63.1 Anemia in chronic kidney disease; E83.51 Hypocalcemia; E87.6 Hypokalemia; F03.90 Unspecified dementia, unspecified severity, without behavioral disturbance, psychotic disturbance, mood disturbance, and anxiety; I25.10 Atherosclerotic heart disease of native coronary artery without angina pectoris; I27.21 Secondary pulmonary arterial hypertension; I44.0 Atrioventricular block, first degree; I48.0 Paroxysmal atrial fibrillation; I49.1 Atrial premature depolarization; I99.8 Other disorder of circulatory system; E11.22 Type 2 diabetes mellitus with diabetic chronic kidney disease; K57.90 Diverticulosis of intestine, part unspecified, without perforation or abscess without bleeding; Z20.822 Contact with and (suspected) exposure to COVID-19; R47.02 Dysphasia; Z68.29 Body mass index [BMI] 29.0-29.9, adult; Z79.4 Long term (current) use of insulin; Z79.899 Other long term (current) drug therapy; Z89.511 Acquired absence of right leg below knee; Z99.2 Dependence on renal dialysis
CPT/HCPCS: 36415; 36556; 71045; 73600; 73620; 74176; 76770; 76937; 80048; 80053; 80202; 82040; 82270; 82550; 82553; 82607; 82728; 82746; 82962; 83036; 83540; 83550; 83605; 83735; 83880; 83970; 84100; 84134; 84145; 84484; 85025; 85651; 86140; 86703; 86705; 86706; 86709; 86803; 86850; 86900; 86920; 87340; 87426; 88307; 88311; 90585; 92610; 93005; 93306; 93923; 93970; 99291; C1752; C1893; J0885; J1642; J1644; J1650; J1815; J2175; J2185; J2270; J2405; J2543; J3370; J3490; J7030; J7040; J7060; P9016; Q9963

== ENCOUNTER 2021-01-17 13:19 | Inpatient (IN) | payer MEDICAID, MEDICARE ==
[~2021-01-17] VITALS: Ht 165.1 cm; Wt 62.1 kg
[~2021-01-17 13:19] MED LIST: AMLO2.5T45 MT; FURO20TA4 MT; LISI2.5T47 MT; METO25TA6 MT; VALS40TA11 MT
[2021-01-17] MEDS ORDERED: LORAZEPAM 2MG/ML CPJ IV ONE (13:45)
[2021-01-17] MEDS ORDERED: AMLODIPINE 5MG TABLET PO SCH (14:00)
[2021-01-17 14:30] LABS: BASOPHILS % 0.6 % (0.0-2.0); EOSINOPHILS % 0.3 % (0.0-5.0); HEMATOCRIT. 25.1 % (36.0-48.0); HEMOGLOBIN. 8.1 g/dL (12.0-16.0); LYMPHOCYTES % 19.8 % (20.0-50.0); MEAN CORPUSCULAR VOLUME 83.8 fL (81.0-99.0); MEAN PLATELET VOLUME 8.4 fl (7.4-10.4); MONOCYTES % 3.2 % (2.0-8.0); NEUTROPHILS % 76.1 % (40.0-76.0); PLATELET 171 x1000/uL (130-400); RED BLOOD CELL COUNT 2.99 mill/uL (4.2-5.4); RED CELL DISTRIBUTION WIDTH 19.2 % (11.6-14.6)
[2021-01-17 14:36] LABS: CHLORIDE 113 mEq/L (98-107)
[2021-01-17 14:39] LABS: INR 1.1; PARTIAL THROMBOPLASTIN TIME 27.6 sec (23.4-31.0); PROTHROMBIN TIME 12.2 sec (9.6-11.0)
[2021-01-17] MEDS ORDERED: SODIUM BICARBONATE 4% (2.4MEQ) 5ML VIAL IV ONE (14:44)
[2021-01-17] MEDS ORDERED: LIDOCAINE HCL 1% 20ML VIAL (Pyxis) INJ ONE (14:44)
[2021-01-17] MEDS: LOSARTAN POTASSIUM 50 MG TABLET PO SCH ×2 (14:46→17:00)
[2021-01-17] MEDS ORDERED: PIPERACILLIN/TAZ 3.375G PREMIX 50 ML IV ONE (15:15)
[2021-01-17] MEDS ORDERED: VANCOMYCIN 1 G PREMIX 200 ML IV ONE (15:15)
[2021-01-17 15:52] LABS: CLARITY URINE CLEAR (CLEAR); COLOR URINE YELLOW (YELLOW); KETONES URINE NEGATIVE (NEGATIVE); LEUKOCYTE ESTERASE URINE NEGATIVE (NEGATIVE); NITRITE URINE NEGATIVE (NEGATIVE); OCCULT BLOOD URINE NEGATIVE (NEGATIVE); PH URINE 6.5 (4.5-8.0); PROTEIN URINE 2+ (NEGATIVE); SPECIFIC GRAVITY URINE 1.011 (1.005-1.030); UROBILINOGEN URINE 0.2 E.U./dL (0.2-1.0)
[2021-01-17 15:54] LABS: CHLORIDE 113 mEq/L (98-107)
[2021-01-17 15:59] LABS: PHOSPHORUS 4.4 mg/dL (2.5-4.9)
[2021-01-17] MEDS ORDERED: ONDANSETRON HCL 4MG/2ML INJ IV PRN (16:00)
[2021-01-17] MEDS ORDERED: GUAIFENESIN 200MG/10ML SUGAR FREE UDC PO PRN (16:00)
[2021-01-17] MEDS ORDERED: ACETAMINOPHEN 325MG TABLET PO PRN (16:00)
[2021-01-17] MEDS ORDERED: NITROGLYCERIN 0.4MG TABLET SL SL PRN (16:00)
[2021-01-17] MEDS ORDERED: ZOLPIDEM TARTRATE 5MG TABLET PO PRN (16:00)
[2021-01-17] MEDS ORDERED: DOCUSATE SODIUM 100MG CAPSULE PO PRN (16:00)
[2021-01-17] MEDS ORDERED: MAGNESIUM/ALUMINUM HYDROXIDE/SIMETHICONE 30ML UDC PO PRN (16:00)
[2021-01-17] MEDS ORDERED: IPRATROPIUM/ALBUTEROL 0.5-3(2.5)MG/3ML NEB NEB PRN (16:00)
[2021-01-17 16:35] LABS: HEPATITIS B SURFACE ANTIGEN NEGATIVE
[2021-01-17] MEDS: BLOOD SUGAR DIAGNOSTIC STRIP TEST SCH ×2 (17:00→21:00)
[2021-01-17] MEDS ORDERED: SEVELAMER CARBONATE 800 MG TABLET PO SCH (17:00)
[2021-01-17] MEDS: SEVELAMER CARBONATE 800 MG TABLET PO SCH (17:00)
[2021-01-17 18:10] VITALS: BP 204/100
[2021-01-17] MEDS: INSULIN LISPRO 100 UNITS/ML SUBCUT SCH ×2 (18:10→21:00)
[2021-01-17 19:12] VITALS: BP 204/100
[2021-01-17] MEDS ORDERED: ENOXAPARIN 30MG/0.3ML SYR SUBCUT SCH (20:00)
[2021-01-17] MEDS: AMLODIPINE 10MG TABLET PO SCH (20:30)
[2021-01-17] MEDS: DEXTROSE 50% WATER 50ML SYRINGE IV PRN (20:53)
[2021-01-17] MEDS ORDERED: DOXAZOSIN MESYLATE 2MG TABLET PO SCH (21:00)
[2021-01-17] MEDS: ASCORBIC ACID 500 MG TABLET PO SCH (22:45)
[2021-01-17] MEDS: FAMOTIDINE 20MG TABLET PO SCH (22:45)
[2021-01-17 23:38] LABS: CREATINE KINASE 52 IU/L (26-192)
[2021-01-17 23:39] LABS: CREATINE KINASE MB FRACTION 4.2 ng/mL (0.5-3.6)
[2021-01-18] VITALS (21 sets, daily range): BP systolic 131–167; BP diastolic 60–88
[2021-01-18] MEDS: CLONIDINE 0.1MG TABLET PO PRN (05:28)
[2021-01-18] MEDS: BLOOD SUGAR DIAGNOSTIC STRIP TEST SCH ×4 (06:01→20:16)
[2021-01-18] MEDS: DEXTROSE 50% WATER 50ML SYRINGE IV PRN (06:05)
[2021-01-18] MEDS: SEVELAMER CARBONATE 800 MG TABLET PO SCH ×3 (07:20→18:35)
[2021-01-18] MEDS: INSULIN LISPRO 100 UNITS/ML SUBCUT SCH ×4 (07:20→20:16)
[2021-01-18] MEDS ORDERED: TUBERCULIN,PURIF.PROT.DERIV. 5 TU/0.1 ML SYR ID ONE (08:30)
[2021-01-18] MEDS: LOSARTAN POTASSIUM 50 MG TABLET PO SCH ×2 (09:19→18:35)
[2021-01-18 09:20] LABS: BASOPHILS % 0.6 % (0.0-2.0); EOSINOPHILS % 0.8 % (0.0-5.0); LYMPHOCYTES % 18.8 % (20.0-50.0); MEAN PLATELET VOLUME 8.4 fl (7.4-10.4); MONOCYTES % 5.3 % (2.0-8.0); NEUTROPHILS % 74.5 % (40.0-76.0); PLATELET 111 x1000/uL (130-400); RED BLOOD CELL COUNT 2.28 mill/uL (4.2-5.4); RED CELL DISTRIBUTION WIDTH 19.6 % (11.6-14.6)
[2021-01-18] MEDS: AMLODIPINE 10MG TABLET PO SCH (09:20)
[2021-01-18] MEDS: ZINC SULFATE 220 MG ( 50 ) CAPSULE PO SCH (09:20)
[2021-01-18] MEDS: CHOLECALCIFEROL (D3) 1000 UNIT TABLET PO SCH (09:20)
[2021-01-18] MEDS: ASCORBIC ACID 500 MG TABLET PO SCH ×2 (09:20→20:21)
[2021-01-18 09:30] LABS: CHLORIDE 113 mEq/L (98-107)
[2021-01-18 09:41] LABS: CREATINE KINASE MB FRACTION 3.8 ng/mL (0.5-3.6)
[2021-01-18 09:45] LABS: PHOSPHORUS 3.6 mg/dL (2.5-4.9)
[2021-01-18 09:46] LABS: LDL CHOLESTEROL 30 mg/dL (5-100)
[2021-01-18 09:48] LABS: CREATINE KINASE 27 IU/L (26-192)
[2021-01-18 09:50] LABS: HDL CHOLESTEROL 43 mg/dL (40-59)
[2021-01-18 09:55] LABS: HEMOGLOBIN. 6.2 g/dL (12.0-16.0)
[2021-01-18 09:56] LABS: HEMATOCRIT. 19.2 % (36.0-48.0); MEAN CORPUSCULAR HEMOGLOBIN 26.8 pg (28.0-32.0); MEAN CORPUSCULAR VOLUME 83.2 fL (81.0-99.0)
[2021-01-18 16:03] LABS: HEMATOCRIT 23.8 % (36.0-48.0); HEMOGLOBIN 7.9 g/dL (12.0-16.0)
[2021-01-18 16:14] LABS: INR 1.2; PROTHROMBIN TIME 12.5 sec (9.6-11.0)
[2021-01-18] MEDS: FAMOTIDINE 20MG TABLET PO SCH (20:21)
[2021-01-18] MEDS ORDERED: DOXAZOSIN MESYLATE 4MG TABLET PO SCH (21:00)
[2021-01-19] VITALS (12 sets, daily range): BP systolic 136–169; BP diastolic 65–97
[2021-01-19] MEDS: DIPHENHYDRAMINE 50MG/ML VIAL IV PRN (00:17)
[2021-01-19] MEDS: CLONIDINE 0.1MG TABLET PO PRN (01:24)
[2021-01-19] MEDS: BLOOD SUGAR DIAGNOSTIC STRIP TEST SCH ×4 (06:01→21:00)
[2021-01-19] MEDS: INSULIN LISPRO 100 UNITS/ML SUBCUT SCH ×4 (07:20→21:00)
[2021-01-19] MEDS: ASCORBIC ACID 500 MG TABLET PO SCH ×2 (08:20→22:17)
[2021-01-19] MEDS: CHOLECALCIFEROL (D3) 1000 UNIT TABLET PO SCH (08:20)
[2021-01-19] MEDS: LOSARTAN POTASSIUM 50 MG TABLET PO SCH ×2 (08:21→18:10)
[2021-01-19] MEDS: AMLODIPINE 10MG TABLET PO SCH (08:21)
[2021-01-19] MEDS: ZINC SULFATE 220 MG ( 50 ) CAPSULE PO SCH (08:21)
[2021-01-19] MEDS: SEVELAMER CARBONATE 800 MG TABLET PO SCH ×3 (08:23→18:10)
[2021-01-19] MEDS: ACETAMINOPHEN 325MG TABLET PO PRN (11:15)
[2021-01-19 15:35] LABS: BASOPHILS % 0.5 % (0.0-2.0); EOSINOPHILS % 0.3 % (0.0-5.0); HEMATOCRIT. 25.9 % (36.0-48.0); HEMOGLOBIN. 8.5 g/dL (12.0-16.0); LYMPHOCYTES % 14.3 % (20.0-50.0); MEAN CORPUSCULAR HEMOGLOBIN 27.8 pg (28.0-32.0); MEAN CORPUSCULAR VOLUME 84.9 fL (81.0-99.0); MEAN PLATELET VOLUME 8.5 fl (7.4-10.4); MONOCYTES % 5.2 % (2.0-8.0); NEUTROPHILS % 79.7 % (40.0-76.0); PLATELET 123 x1000/uL (130-400); RED BLOOD CELL COUNT 3.05 mill/uL (4.2-5.4); RED CELL DISTRIBUTION WIDTH 18.9 % (11.6-14.6)
[2021-01-19] MEDS: FAMOTIDINE 20MG TABLET PO SCH (22:16)
[2021-01-19] MEDS: DOXAZOSIN MESYLATE 4MG TABLET PO SCH (22:17)
[2021-01-20] VITALS (10 sets, daily range): BP systolic 133–168; BP diastolic 59–78
[2021-01-20] MEDS: BLOOD SUGAR DIAGNOSTIC STRIP TEST SCH ×4 (06:19→21:00)
[2021-01-20] MEDS: INSULIN LISPRO 100 UNITS/ML SUBCUT SCH ×4 (07:20→21:00)
[2021-01-20] MEDS: ASCORBIC ACID 500 MG TABLET PO SCH ×2 (11:07→21:35)
[2021-01-20] MEDS: CHOLECALCIFEROL (D3) 1000 UNIT TABLET PO SCH (11:07)
[2021-01-20] MEDS: AMLODIPINE 10MG TABLET PO SCH (11:08)
[2021-01-20] MEDS: SEVELAMER CARBONATE 800 MG TABLET PO SCH ×3 (11:08→18:16)
[2021-01-20] MEDS: LOSARTAN POTASSIUM 50 MG TABLET PO SCH ×2 (11:08→18:17)
[2021-01-20] MEDS: ZINC SULFATE 220 MG ( 50 ) CAPSULE PO SCH (11:09)
[2021-01-20] MEDS: MEGESTROL ACETATE 400 MG/10 ML UDC PO SCH (11:09)
[2021-01-20] MEDS: DEXT 5%/0.45% NACL 1000ML 1,000 ML IV SCH (11:21)
[2021-01-20 11:32] LABS: BASOPHILS % 0.4 % (0.0-2.0); EOSINOPHILS % 0.3 % (0.0-5.0); HEMATOCRIT. 25.7 % (36.0-48.0); HEMOGLOBIN. 8.4 g/dL (12.0-16.0); LYMPHOCYTES % 14.8 % (20.0-50.0); MEAN CORPUSCULAR HEMOGLOBIN 27.6 pg (28.0-32.0); MEAN CORPUSCULAR VOLUME 84.8 fL (81.0-99.0); MEAN PLATELET VOLUME 8.9 fl (7.4-10.4); MONOCYTES % 4.9 % (2.0-8.0); NEUTROPHILS % 79.6 % (40.0-76.0); PLATELET 121 x1000/uL (130-400); RED BLOOD CELL COUNT 3.03 mill/uL (4.2-5.4); RED CELL DISTRIBUTION WIDTH 19.2 % (11.6-14.6)
[2021-01-20] MEDS: DOXAZOSIN MESYLATE 4MG TABLET PO SCH (21:35)
[2021-01-20] MEDS: FAMOTIDINE 20MG TABLET PO SCH (21:35)
[2021-01-21] VITALS (11 sets, daily range): BP systolic 102–155; BP diastolic 58–87
[2021-01-21] MEDS: DIPHENHYDRAMINE 50MG/ML VIAL IV PRN (04:27)
[2021-01-21] MEDS: SEVELAMER CARBONATE 800 MG TABLET PO SCH ×3 (07:20→17:27)
[2021-01-21] MEDS: INSULIN LISPRO 100 UNITS/ML SUBCUT SCH ×3 (07:20→20:16)
[2021-01-21] MEDS: BLOOD SUGAR DIAGNOSTIC STRIP TEST SCH ×4 (07:28→20:16)
[2021-01-21] MEDS: LOSARTAN POTASSIUM 50 MG TABLET PO SCH ×2 (08:15→17:00)
[2021-01-21] MEDS: CHOLECALCIFEROL (D3) 1000 UNIT TABLET PO SCH (08:15)
[2021-01-21] MEDS: ASCORBIC ACID 500 MG TABLET PO SCH ×2 (08:15→20:15)
[2021-01-21] MEDS: AMLODIPINE 10MG TABLET PO SCH ×2 (08:15→11:07)
[2021-01-21] MEDS: ZINC SULFATE 220 MG ( 50 ) CAPSULE PO SCH (08:15)
[2021-01-21] MEDS: MEGESTROL ACETATE 400 MG/10 ML UDC PO SCH ×2 (08:15→11:07)
[2021-01-21 08:34] LABS: BASOPHILS % 0.1 % (0.0-2.0); EOSINOPHILS % 0.1 % (0.0-5.0); HEMATOCRIT. 25.4 % (36.0-48.0); HEMOGLOBIN. 8.3 g/dL (12.0-16.0); LYMPHOCYTES % 12.6 % (20.0-50.0); MEAN CORPUSCULAR HEMOGLOBIN 27.8 pg (28.0-32.0); MEAN CORPUSCULAR VOLUME 85.8 fL (81.0-99.0); MEAN PLATELET VOLUME 8.6 fl (7.4-10.4); MONOCYTES % 5.6 % (2.0-8.0); NEUTROPHILS % 81.6 % (40.0-76.0); PLATELET 116 x1000/uL (130-400); RED BLOOD CELL COUNT 2.97 mill/uL (4.2-5.4); RED CELL DISTRIBUTION WIDTH 19.7 % (11.6-14.6)
[2021-01-21] MEDS: DEXT 5%/0.45% NACL 1000ML 1,000 ML IV SCH (10:13)
[2021-01-21] MEDS: ACETAMINOPHEN 325MG TABLET PO PRN (10:26)
[2021-01-21] MEDS ORDERED: TRAMADOL 50MG TABLET PO PRN (10:30)
[2021-01-21] MEDS: DOXAZOSIN MESYLATE 4MG TABLET PO SCH (20:15)
[2021-01-21] MEDS: FAMOTIDINE 20MG TABLET PO SCH (20:15)
[2021-01-22] VITALS (10 sets, daily range): BP systolic 113–155; BP diastolic 28–79
[2021-01-22] MEDS: BLOOD SUGAR DIAGNOSTIC STRIP TEST SCH ×4 (06:25→21:00)
[2021-01-22] MEDS: INSULIN LISPRO 100 UNITS/ML SUBCUT SCH ×4 (06:25→21:00)
[2021-01-22] MEDS: SEVELAMER CARBONATE 800 MG TABLET PO SCH ×3 (06:34→18:08)
[2021-01-22] MEDS: CHOLECALCIFEROL (D3) 1000 UNIT TABLET PO SCH (09:00)
[2021-01-22] MEDS: MEGESTROL ACETATE 400 MG/10 ML UDC PO SCH (09:39)
[2021-01-22] MEDS: ZINC SULFATE 220 MG ( 50 ) CAPSULE PO SCH (09:39)
[2021-01-22] MEDS: LOSARTAN POTASSIUM 50 MG TABLET PO SCH ×2 (09:39→18:08)
[2021-01-22] MEDS: ASCORBIC ACID 500 MG TABLET PO SCH ×2 (09:39→21:00)
[2021-01-22] MEDS: AMLODIPINE 10MG TABLET PO SCH (09:39)
[2021-01-22] MEDS: DEXT 5%/0.45% NACL 1000ML 1,000 ML IV SCH (09:40)
[2021-01-22] MEDS: DOXAZOSIN MESYLATE 4MG TABLET PO SCH (21:00)
[2021-01-22] MEDS: FAMOTIDINE 20MG TABLET PO SCH (21:00)
[2021-01-23] VITALS (8 sets, daily range): BP systolic 109–154; BP diastolic 21–75
[2021-01-23] MEDS: BLOOD SUGAR DIAGNOSTIC STRIP TEST SCH ×4 (06:05→20:24)
[2021-01-23 06:49] LABS: BASOPHILS % 0.1 % (0.0-2.0); EOSINOPHILS % 0.4 % (0.0-5.0); HEMATOCRIT. 24.4 % (36.0-48.0); HEMOGLOBIN. 7.8 g/dL (12.0-16.0); MEAN CORPUSCULAR HEMOGLOBIN 27.4 pg (28.0-32.0); MEAN CORPUSCULAR VOLUME 86.1 fL (81.0-99.0); MEAN PLATELET VOLUME 10.1 fl (7.4-10.4); MONOCYTES % 3.9 % (2.0-8.0); NEUTROPHILS % 87.6 % (40.0-76.0); PLATELET 116 x1000/uL (130-400); RED BLOOD CELL COUNT 2.83 mill/uL (4.2-5.4); RED CELL DISTRIBUTION WIDTH 19.4 % (11.6-14.6)
[2021-01-23] MEDS: INSULIN LISPRO 100 UNITS/ML SUBCUT SCH ×4 (07:20→20:24)
[2021-01-23] MEDS: LOSARTAN POTASSIUM 50 MG TABLET PO SCH ×2 (09:26→17:46)
[2021-01-23] MEDS: CHOLECALCIFEROL (D3) 1000 UNIT TABLET PO SCH (09:26)
[2021-01-23] MEDS: ASCORBIC ACID 500 MG TABLET PO SCH ×2 (09:26→20:19)
[2021-01-23] MEDS: MEGESTROL ACETATE 400 MG/10 ML UDC PO SCH (09:26)
[2021-01-23] MEDS: ZINC SULFATE 220 MG ( 50 ) CAPSULE PO SCH (09:26)
[2021-01-23] MEDS: AMLODIPINE 10MG TABLET PO SCH (09:26)
[2021-01-23] MEDS: SEVELAMER CARBONATE 800 MG TABLET PO SCH ×3 (09:36→17:46)
[2021-01-23] MEDS: DEXT 5%/0.45% NACL 1000ML 1,000 ML IV SCH (09:37)
[2021-01-23] MEDS: DOXAZOSIN MESYLATE 4MG TABLET PO SCH (20:24)
[2021-01-23] MEDS: FAMOTIDINE 20MG TABLET PO SCH (20:24)
[2021-01-24] VITALS (11 sets, daily range): BP systolic 105–128; BP diastolic 47–62
[2021-01-24] MEDS: BLOOD SUGAR DIAGNOSTIC STRIP TEST SCH ×4 (06:50→20:17)
[2021-01-24] MEDS: INSULIN LISPRO 100 UNITS/ML SUBCUT SCH ×4 (06:54→20:54)
[2021-01-24 09:00] LABS: BASOPHILS % 0.1 % (0.0-2.0); EOSINOPHILS % 0.2 % (0.0-5.0); HEMATOCRIT. 22.7 % (36.0-48.0); HEMOGLOBIN. 7.3 g/dL (12.0-16.0); LYMPHOCYTES % 8.7 % (20.0-50.0); MEAN CORPUSCULAR VOLUME 84.6 fL (81.0-99.0); MEAN PLATELET VOLUME 9.4 fl (7.4-10.4); MONOCYTES % 3.9 % (2.0-8.0); NEUTROPHILS % 87.1 % (40.0-76.0); PLATELET 108 x1000/uL (130-400); RED BLOOD CELL COUNT 2.69 mill/uL (4.2-5.4)
[2021-01-24] MEDS: ZINC SULFATE 220 MG ( 50 ) CAPSULE PO SCH (09:59)
[2021-01-24] MEDS: AMLODIPINE 10MG TABLET PO SCH (09:59)
[2021-01-24] MEDS: LOSARTAN POTASSIUM 50 MG TABLET PO SCH ×2 (09:59→19:00)
[2021-01-24] MEDS: SEVELAMER CARBONATE 800 MG TABLET PO SCH ×3 (09:59→19:01)
[2021-01-24] MEDS: MEGESTROL ACETATE 400 MG/10 ML UDC PO SCH (09:59)
[2021-01-24] MEDS: CHOLECALCIFEROL (D3) 1000 UNIT TABLET PO SCH (09:59)
[2021-01-24] MEDS: ASCORBIC ACID 500 MG TABLET PO SCH ×2 (09:59→20:53)
[2021-01-24] MEDS: DEXT 5%/0.45% NACL 1000ML 1,000 ML IV SCH (10:23)
[2021-01-24] MEDS: SODIUM HYPOCHLORITE 0.125% 473ML SOLUTION TOP SCH (19:01)
[2021-01-24] MEDS: DOXAZOSIN MESYLATE 4MG TABLET PO SCH (20:38)
[2021-01-24] MEDS: FAMOTIDINE 20MG TABLET PO SCH (20:53)
[2021-01-25] VITALS: BP 117/59
[2021-01-25 04:00] VITALS: BP_SYST 111; BP_SYST 127; BP_DIAS 64; BP_DIAS 69
[2021-01-25] MEDS: BLOOD SUGAR DIAGNOSTIC STRIP TEST SCH ×4 (07:20→21:00)
[2021-01-25] MEDS: INSULIN LISPRO 100 UNITS/ML SUBCUT SCH ×4 (07:50→21:00)
[2021-01-25 08:00] VITALS: BP 137/70
[2021-01-25] MEDS: SEVELAMER CARBONATE 800 MG TABLET PO SCH ×3 (10:07→18:03)
[2021-01-25] MEDS: ZINC SULFATE 220 MG ( 50 ) CAPSULE PO SCH (10:07)
[2021-01-25] MEDS: ASCORBIC ACID 500 MG TABLET PO SCH ×2 (10:07→22:18)
[2021-01-25] MEDS: LOSARTAN POTASSIUM 50 MG TABLET PO SCH ×2 (10:07→18:04)
[2021-01-25] MEDS: CHOLECALCIFEROL (D3) 1000 UNIT TABLET PO SCH (10:07)
[2021-01-25] MEDS: MEGESTROL ACETATE 400 MG/10 ML UDC PO SCH (10:07)
[2021-01-25] MEDS: AMLODIPINE 10MG TABLET PO SCH (10:08)
[2021-01-25] MEDS: SODIUM HYPOCHLORITE 0.125% 473ML SOLUTION TOP SCH (10:08)
[2021-01-25] MEDS: DEXT 5%/0.45% NACL 1000ML 1,000 ML IV SCH (10:08)
[2021-01-25 12:00] VITALS: BP 123/59
[2021-01-25 16:00] VITALS: BP 131/60
[2021-01-25] MEDS ORDERED: CEFTRIAXONE 2 G in DEXTROSE 5% WATER 50 ML IV SCH (17:00)
[2021-01-25] MEDS: METRONIDAZOLE 250MG TABLET PO SCH (18:03)
[2021-01-25 20:00] VITALS: BP 148/67
[2021-01-25] MEDS: DOXAZOSIN MESYLATE 4MG TABLET PO SCH (22:19)
[2021-01-25] MEDS: FAMOTIDINE 20MG TABLET PO SCH (22:19)
[2021-01-26] VITALS (11 sets, daily range): BP systolic 104–150; BP diastolic 46–68
[2021-01-26] MEDS: METRONIDAZOLE 250MG TABLET PO SCH ×4 (01:20→21:40)
[2021-01-26 06:10] LABS: BASOPHILS % 0.2 % (0.0-2.0); EOSINOPHILS % 0.3 % (0.0-5.0); HEMATOCRIT. 21.8 % (36.0-48.0); HEMOGLOBIN. 7.1 g/dL (12.0-16.0); LYMPHOCYTES % 13.8 % (20.0-50.0); MEAN CORPUSCULAR HEMOGLOBIN 27.4 pg (28.0-32.0); MEAN CORPUSCULAR VOLUME 84.7 fL (81.0-99.0); MEAN PLATELET VOLUME 9.4 fl (7.4-10.4); MONOCYTES % 5.4 % (2.0-8.0); NEUTROPHILS % 80.3 % (40.0-76.0); PLATELET 95 x1000/uL (130-400); RED BLOOD CELL COUNT 2.57 mill/uL (4.2-5.4); RED CELL DISTRIBUTION WIDTH 18.4 % (11.6-14.6)
[2021-01-26] MEDS: BLOOD SUGAR DIAGNOSTIC STRIP TEST SCH ×4 (07:20→21:40)
[2021-01-26] MEDS: INSULIN LISPRO 100 UNITS/ML SUBCUT SCH ×4 (07:50→21:00)
[2021-01-26] MEDS: SEVELAMER CARBONATE 800 MG TABLET PO SCH ×3 (10:55→17:50)
[2021-01-26] MEDS: ZINC SULFATE 220 MG ( 50 ) CAPSULE PO SCH (10:55)
[2021-01-26] MEDS: ASCORBIC ACID 500 MG TABLET PO SCH ×2 (10:55→21:39)
[2021-01-26] MEDS: CHOLECALCIFEROL (D3) 1000 UNIT TABLET PO SCH (10:55)
[2021-01-26] MEDS: AMLODIPINE 10MG TABLET PO SCH (10:56)
[2021-01-26] MEDS: MEGESTROL ACETATE 400 MG/10 ML UDC PO SCH (10:56)
[2021-01-26] MEDS: LOSARTAN POTASSIUM 50 MG TABLET PO SCH ×2 (10:56→17:00)
[2021-01-26] MEDS: SODIUM HYPOCHLORITE 0.125% 473ML SOLUTION TOP SCH (10:57)
[2021-01-26] MEDS: DEXT 5%/0.45% NACL 1000ML 1,000 ML IV SCH (10:57)
[2021-01-26 15:42] LABS: MEAN CORPUSCULAR HEMOGLOBIN 27.4 pg (28.0-32.0); MEAN CORPUSCULAR VOLUME 85.4 fL (81.0-99.0); PLATELET 106 x1000/uL (130-400); RED BLOOD CELL COUNT 2.55 mill/uL (4.2-5.4); RED CELL DISTRIBUTION WIDTH 18.7 % (11.6-14.6)
[2021-01-26 16:26] LABS: HEMATOCRIT 21.8 % (36.0-48.0)
[2021-01-26] MEDS ORDERED: CEFEPIME 2,000 MG in DEXT 5% WATER 100 ML IV SCH (17:00)
[2021-01-26 18:37] LABS: HEMATOCRIT 21.1 % (36.0-48.0); HEMOGLOBIN 6.8 g/dL (12.0-16.0)
[2021-01-26] MEDS: FAMOTIDINE 20MG TABLET PO SCH (21:39)
[2021-01-26] MEDS: DOXAZOSIN MESYLATE 4MG TABLET PO SCH (21:39)
[2021-01-26] MEDS: EPOETIN ALFA-EPBX 10,000 UNIT/ML VIAL SUBCUT SCH (21:40)
[2021-01-27] VITALS: BP 144/66
[2021-01-27 02:48] LABS: HEMATOCRIT 26.2 % (36.0-48.0); HEMOGLOBIN 8.5 g/dL (12.0-16.0)
[2021-01-27 02:58] LABS: INR 1.3; PROTHROMBIN TIME 13.6 sec (9.6-11.0)
[2021-01-27 04:00] VITALS: BP 144/69
[2021-01-27] MEDS: METRONIDAZOLE 250MG TABLET PO SCH ×3 (05:44→22:01)
[2021-01-27] MEDS: BLOOD SUGAR DIAGNOSTIC STRIP TEST SCH ×4 (06:47→21:00)
[2021-01-27] MEDS: INSULIN LISPRO 100 UNITS/ML SUBCUT SCH ×4 (07:35→21:00)
[2021-01-27] MEDS: SEVELAMER CARBONATE 800 MG TABLET PO SCH ×3 (07:50→16:46)
[2021-01-27 08:00] VITALS: BP 134/50
[2021-01-27] MEDS: FOLIC ACID/VITAMIN B COMP W-C TABLET PO SCH (08:37)
[2021-01-27] MEDS: AMLODIPINE 10MG TABLET PO SCH (08:37)
[2021-01-27] MEDS: LOSARTAN POTASSIUM 50 MG TABLET PO SCH ×2 (08:37→16:46)
[2021-01-27] MEDS: MEGESTROL ACETATE 400 MG/10 ML UDC PO SCH (08:37)
[2021-01-27] MEDS: CHOLECALCIFEROL (D3) 1000 UNIT TABLET PO SCH (08:38)
[2021-01-27] MEDS: ASCORBIC ACID 500 MG TABLET PO SCH ×2 (08:38→22:01)
[2021-01-27] MEDS: ZINC SULFATE 220 MG ( 50 ) CAPSULE PO SCH (08:38)
[2021-01-27] MEDS: DEXT 5%/0.45% NACL 1000ML 1,000 ML IV SCH (09:36)
[2021-01-27] MEDS: SODIUM HYPOCHLORITE 0.125% 473ML SOLUTION TOP SCH (09:38)
[2021-01-27 12:00] VITALS: BP 144/60
[2021-01-27 16:00] VITALS: BP 150/64
[2021-01-27] MEDS ORDERED: CEFTRIAXONE 2 G PREMIX 50 ML IV SCH (17:30)
[2021-01-27 20:00] VITALS: BP 128/56
[2021-01-27] MEDS: FAMOTIDINE 20MG TABLET PO SCH (22:01)
[2021-01-27] MEDS: DOXAZOSIN MESYLATE 4MG TABLET PO SCH (22:02)
[2021-01-28] VITALS: BP 163/66
[2021-01-28] MEDS: CLONIDINE 0.1MG TABLET PO PRN (00:10)
[2021-01-28 04:00] VITALS: BP 149/64
[2021-01-28] MEDS: METRONIDAZOLE 250MG TABLET PO SCH ×3 (06:13→21:30)
[2021-01-28] MEDS: BLOOD SUGAR DIAGNOSTIC STRIP TEST SCH ×4 (07:05→21:34)
[2021-01-28] MEDS: INSULIN LISPRO 100 UNITS/ML SUBCUT SCH ×4 (07:50→21:41)
[2021-01-28 08:00] VITALS: BP 144/58
[2021-01-28] MEDS: MEGESTROL ACETATE 400 MG/10 ML UDC PO SCH (09:15)
[2021-01-28] MEDS: CHOLECALCIFEROL (D3) 1000 UNIT TABLET PO SCH (09:15)
[2021-01-28] MEDS: FOLIC ACID/VITAMIN B COMP W-C TABLET PO SCH (09:16)
[2021-01-28] MEDS: ZINC SULFATE 220 MG ( 50 ) CAPSULE PO SCH (09:16)
[2021-01-28] MEDS: SEVELAMER CARBONATE 800 MG TABLET PO SCH ×3 (09:16→17:30)
[2021-01-28] MEDS: LOSARTAN POTASSIUM 50 MG TABLET PO SCH ×2 (09:16→17:00)
[2021-01-28] MEDS: ASCORBIC ACID 500 MG TABLET PO SCH ×2 (09:16→21:30)
[2021-01-28] MEDS: AMLODIPINE 10MG TABLET PO SCH (09:16)
[2021-01-28] MEDS: DEXT 5%/0.45% NACL 1000ML 1,000 ML IV SCH (09:18)
[2021-01-28] MEDS: SILDENAFIL CITRATE 20MG TABLET PO SCH ×3 (09:23→21:40)
[2021-01-28] MEDS: CEFTRIAXONE 2 G in DEXTROSE 5% WATER 50 ML IV SCH (09:24)
[2021-01-28] MEDS: POTASSIUM CHLORIDE 20MEQ TABLET SR PO SCH ×2 (12:53→17:30)
[2021-01-28 16:00] VITALS: BP 102/58
[2021-01-28 20:00] VITALS: BP 138/51
[2021-01-28] MEDS: DOXAZOSIN MESYLATE 4MG TABLET PO SCH (21:31)
[2021-01-28] MEDS: EPOETIN ALFA-EPBX 10,000 UNIT/ML VIAL SUBCUT SCH (21:31)
[2021-01-28] MEDS: FAMOTIDINE 20MG TABLET PO SCH (21:31)
[2021-01-29] VITALS: BP 139/41
[2021-01-29 04:00] VITALS: BP 152/56
[2021-01-29] MEDS: METRONIDAZOLE 250MG TABLET PO SCH ×3 (05:39→22:00)
[2021-01-29] MEDS: SILDENAFIL CITRATE 20MG TABLET PO SCH ×3 (05:40→22:00)
[2021-01-29] MEDS ORDERED: LIDOCAINE 1%/EPI 1:200,000 10 ML VIAL IJ ONE (07:05)
[2021-01-29] MEDS ORDERED: VANCOMYCIN HCL 1 GM/VIAL ONE (07:06)
[2021-01-29] MEDS: BLOOD SUGAR DIAGNOSTIC STRIP TEST SCH ×4 (07:41→21:00)
[2021-01-29] MEDS: INSULIN LISPRO 100 UNITS/ML SUBCUT SCH ×4 (07:41→21:00)
[2021-01-29] MEDS: SEVELAMER CARBONATE 800 MG TABLET PO SCH ×3 (07:50→17:50)
[2021-01-29 08:00] VITALS: BP 154/79
[2021-01-29] MEDS: ZINC SULFATE 220 MG ( 50 ) CAPSULE PO SCH (09:00)
[2021-01-29] MEDS: CEFTRIAXONE 2 G in DEXTROSE 5% WATER 50 ML IV SCH (09:00)
[2021-01-29] MEDS: LOSARTAN POTASSIUM 50 MG TABLET PO SCH ×2 (09:00→17:00)
[2021-01-29] MEDS: ASCORBIC ACID 500 MG TABLET PO SCH ×2 (09:00→21:00)
[2021-01-29] MEDS: CHOLECALCIFEROL (D3) 1000 UNIT TABLET PO SCH (09:00)
[2021-01-29] MEDS: DEXT 5%/0.45% NACL 1000ML 1,000 ML IV SCH (09:00)
[2021-01-29] MEDS: SODIUM HYPOCHLORITE 0.125% 473ML SOLUTION TOP SCH (09:00)
[2021-01-29] MEDS: FOLIC ACID/VITAMIN B COMP W-C TABLET PO SCH (09:00)
[2021-01-29] MEDS: MEGESTROL ACETATE 400 MG/10 ML UDC PO SCH (09:00)
[2021-01-29] MEDS: AMLODIPINE 10MG TABLET PO SCH (09:00)
[2021-01-29] MEDS ORDERED: ROPIVACAINE HCL 10MG/ML 20 ML VIAL EPI ONE (09:38)
[2021-01-29] MEDS ORDERED: PROPOFOL 200MG/20ML VIAL IV ONE ×2 (09:41→10:04)
[2021-01-29] MEDS ORDERED: MIDAZOLAM HCL 2 MG/2 ML VIAL ONE ×2 (09:41→09:46)
[2021-01-29] MEDS ORDERED: CEFAZOLIN SODIUM 1000MG/VIAL ONE (10:08)
[2021-01-29] MEDS ORDERED: EPHEDRINE SULFATE 50MG/ML VIAL ONE (10:16)
[2021-01-29] MEDS ORDERED: FLUMAZENIL 0.1 MG/ML 5ML VIAL IV ONE (12:49)
[2021-01-29 13:15] VITALS: BP 118/50
[2021-01-29] MEDS ORDERED: FLUMAZENIL 0.1 MG/ML 5ML VIAL IV SCH (13:15)
[2021-01-29 16:00] VITALS: BP 128/59
[2021-01-29 16:36] LABS: BG BASE EXCESS 1.3 mmol/L (-2.0-2.0); BG CARBOXYHEMOGLOBIN 0.4 % (0.5-1.5); BG DEOXYHEMOGLOBIN 5.7 % (0.0-5.0); BG HCO3 ACT 24.4 mmol/L (22.0-26.0); BG OXYGEN SATURATION 94.3 % (92.0-98.5); BG OXYHEMOGLOBIN 93.9 % (94.0-97.0); BG PCO2 32.6 mmHg (35.0-45.0); BG PH 7.492 (7.350-7.450); BG PO2 65.3 mmHg (75.0-100.0); BG SAMPLE SITE RIGHT BRACHIAL; BG TOTAL HEMOGLOBIN 8.8 g/dL (12.0-18.0); BG VENT MODE ROOM AIR
[2021-01-29 20:00] VITALS: BP 146/64
[2021-01-29] MEDS: DOXAZOSIN MESYLATE 4MG TABLET PO SCH (21:00)
[2021-01-29] MEDS: FAMOTIDINE 20MG TABLET PO SCH (21:00)
[2021-01-30] VITALS: BP 146/64
[2021-01-30 01:20] LABS: BASOPHILS % 0.3 % (0.0-2.0); EOSINOPHILS % 0.3 % (0.0-5.0); HEMATOCRIT. 23.5 % (36.0-48.0); HEMOGLOBIN. 7.7 g/dL (12.0-16.0); MEAN CORPUSCULAR VOLUME 85.7 fL (81.0-99.0); MEAN PLATELET VOLUME 9.7 fl (7.4-10.4); MONOCYTES % 3.1 % (2.0-8.0); NEUTROPHILS % 87.3 % (40.0-76.0); PLATELET 65 x1000/uL (130-400); RED BLOOD CELL COUNT 2.74 mill/uL (4.2-5.4); RED CELL DISTRIBUTION WIDTH 17.6 % (11.6-14.6)
[2021-01-30 04:00] VITALS: BP 158/62
[2021-01-30] MEDS: METRONIDAZOLE 250MG TABLET PO SCH ×3 (06:00→21:31)
[2021-01-30] MEDS: SILDENAFIL CITRATE 20MG TABLET PO SCH ×3 (06:00→21:31)
[2021-01-30 06:46] LABS: BASOPHILS % 0.1 % (0.0-2.0); EOSINOPHILS % 0.2 % (0.0-5.0); HEMOGLOBIN. 7.9 g/dL (12.0-16.0); LYMPHOCYTES % 12.4 % (20.0-50.0); MEAN CORPUSCULAR HEMOGLOBIN 27.8 pg (28.0-32.0); MEAN CORPUSCULAR VOLUME 84.7 fL (81.0-99.0); MONOCYTES % 3.3 % (2.0-8.0); PLATELET 61 x1000/uL (130-400); RED BLOOD CELL COUNT 2.84 mill/uL (4.2-5.4); RED CELL DISTRIBUTION WIDTH 17.6 % (11.6-14.6)
[2021-01-30] MEDS: DEXT 5%/0.45% NACL 1000ML 1,000 ML IV SCH (07:07)
[2021-01-30 07:23] LABS: T4 FREE 1.48 ng/dL (0.76-1.46)
[2021-01-30] MEDS: BLOOD SUGAR DIAGNOSTIC STRIP TEST SCH ×4 (07:47→21:37)
[2021-01-30] MEDS: INSULIN LISPRO 100 UNITS/ML SUBCUT SCH ×4 (07:47→21:37)
[2021-01-30 08:00] VITALS: BP 168/82
[2021-01-30] MEDS: SODIUM HYPOCHLORITE 0.125% 473ML SOLUTION TOP SCH (09:00)
[2021-01-30 09:28] LABS: PHOSPHORUS 1.2 mg/dL (2.5-4.9)
[2021-01-30] MEDS: SEVELAMER CARBONATE 800 MG TABLET PO SCH ×3 (09:56→17:40)
[2021-01-30] MEDS: CHOLECALCIFEROL (D3) 1000 UNIT TABLET PO SCH (09:57)
[2021-01-30] MEDS: FOLIC ACID/VITAMIN B COMP W-C TABLET PO SCH (09:57)
[2021-01-30] MEDS: ASCORBIC ACID 500 MG TABLET PO SCH ×2 (09:57→21:31)
[2021-01-30] MEDS: ZINC SULFATE 220 MG ( 50 ) CAPSULE PO SCH (09:57)
[2021-01-30] MEDS: MEGESTROL ACETATE 400 MG/10 ML UDC PO SCH (09:57)
[2021-01-30] MEDS: ACETAMINOPHEN 325MG TABLET PO PRN ×2 (09:58→23:33)
[2021-01-30] MEDS: LOSARTAN POTASSIUM 50 MG TABLET PO SCH ×2 (10:01→17:40)
[2021-01-30] MEDS: AMLODIPINE 10MG TABLET PO SCH (10:02)
[2021-01-30 12:00] VITALS: BP 167/71
[2021-01-30] MEDS: CEFTRIAXONE 2 G in DEXTROSE 5% WATER 50 ML IV SCH (15:32)
[2021-01-30 16:00] VITALS: BP 106/71
[2021-01-30 20:00] VITALS: BP 128/58
[2021-01-30] MEDS: FAMOTIDINE 20MG TABLET PO SCH (21:31)
[2021-01-30] MEDS: DOXAZOSIN MESYLATE 4MG TABLET PO SCH (21:31)
[2021-01-31] VITALS: BP 123/73
[2021-01-31 04:00] VITALS: BP 117/56
[2021-01-31] MEDS: DEXT 5%/0.45% NACL 1000ML 1,000 ML IV SCH (05:56)
[2021-01-31] MEDS: METRONIDAZOLE 250MG TABLET PO SCH ×3 (06:10→21:24)
[2021-01-31] MEDS: SILDENAFIL CITRATE 20MG TABLET PO SCH ×3 (06:10→21:24)
[2021-01-31] MEDS: BLOOD SUGAR DIAGNOSTIC STRIP TEST SCH ×4 (06:34→21:29)
[2021-01-31 06:55] LABS: BASOPHILS % 0.2 % (0.0-2.0); EOSINOPHILS % 0.7 % (0.0-5.0); HEMATOCRIT. 22.3 % (36.0-48.0); HEMOGLOBIN. 7.3 g/dL (12.0-16.0); LYMPHOCYTES % 12.6 % (20.0-50.0); MEAN CORPUSCULAR HEMOGLOBIN 27.8 pg (28.0-32.0); MEAN CORPUSCULAR VOLUME 84.9 fL (81.0-99.0); MEAN PLATELET VOLUME 9.6 fl (7.4-10.4); MONOCYTES % 3.9 % (2.0-8.0); NEUTROPHILS % 82.6 % (40.0-76.0); PLATELET 56 x1000/uL (130-400); RED BLOOD CELL COUNT 2.62 mill/uL (4.2-5.4); RED CELL DISTRIBUTION WIDTH 17.5 % (11.6-14.6)
[2021-01-31 07:42] VITALS: BP 127/58
[2021-01-31] MEDS: INSULIN LISPRO 100 UNITS/ML SUBCUT SCH ×4 (07:50→21:29)
[2021-01-31] MEDS: SODIUM HYPOCHLORITE 0.125% 473ML SOLUTION TOP SCH (09:00)
[2021-01-31] MEDS: CEFTRIAXONE 2 G in DEXTROSE 5% WATER 50 ML IV SCH (09:00)
[2021-01-31] MEDS: MEGESTROL ACETATE 400 MG/10 ML UDC PO SCH ×2 (10:04→10:13)
[2021-01-31] MEDS: POTASSIUM-SODIUM PHOSPHATE POWDER PACKET PO SCH ×2 (10:06→17:24)
[2021-01-31] MEDS: SEVELAMER CARBONATE 800 MG TABLET PO SCH ×3 (10:16→17:32)
[2021-01-31] MEDS: LOSARTAN POTASSIUM 50 MG TABLET PO SCH ×2 (10:16→17:24)
[2021-01-31] MEDS: FOLIC ACID/VITAMIN B COMP W-C TABLET PO SCH (10:17)
[2021-01-31] MEDS: CHOLECALCIFEROL (D3) 1000 UNIT TABLET PO SCH (10:17)
[2021-01-31] MEDS: AMLODIPINE 10MG TABLET PO SCH (10:18)
[2021-01-31] MEDS: ASCORBIC ACID 500 MG TABLET PO SCH ×2 (10:18→21:24)
[2021-01-31] MEDS: ZINC SULFATE 220 MG ( 50 ) CAPSULE PO SCH (10:18)
[2021-01-31 11:50] VITALS: BP 99/49
[2021-01-31 16:09] VITALS: BP 127/50
[2021-01-31 20:00] VITALS: BP 135/52
[2021-01-31] MEDS: FAMOTIDINE 20MG TABLET PO SCH (21:25)
[2021-01-31] MEDS: DOXAZOSIN MESYLATE 4MG TABLET PO SCH (21:25)
[2021-01-31] MEDS: EPOETIN ALFA-EPBX 10,000 UNIT/ML VIAL SUBCUT SCH (21:25)
[2021-02-01] VITALS: BP 157/41
[2021-02-01 04:00] VITALS: BP 163/47
[2021-02-01] MEDS: METRONIDAZOLE 250MG TABLET PO SCH ×3 (05:15→21:59)
[2021-02-01] MEDS: SILDENAFIL CITRATE 20MG TABLET PO SCH ×3 (05:16→21:59)
[2021-02-01] MEDS: BLOOD SUGAR DIAGNOSTIC STRIP TEST SCH ×4 (06:26→21:00)
[2021-02-01] MEDS: INSULIN LISPRO 100 UNITS/ML SUBCUT SCH ×4 (07:50→22:01)
[2021-02-01 08:15] VITALS: BP 127/58
[2021-02-01] MEDS: SODIUM HYPOCHLORITE 0.125% 473ML SOLUTION TOP SCH (09:00)
[2021-02-01] MEDS: DEXT 5%/0.45% NACL 1000ML 1,000 ML IV SCH ×2 (09:00→19:06)
[2021-02-01] MEDS: AMLODIPINE 10MG TABLET PO SCH (09:48)
[2021-02-01] MEDS: POTASSIUM-SODIUM PHOSPHATE POWDER PACKET PO SCH ×2 (09:48→19:05)
[2021-02-01] MEDS: ZINC SULFATE 220 MG ( 50 ) CAPSULE PO SCH (09:48)
[2021-02-01] MEDS: SEVELAMER CARBONATE 800 MG TABLET PO SCH ×3 (09:48→19:05)
[2021-02-01] MEDS: CHOLECALCIFEROL (D3) 1000 UNIT TABLET PO SCH (09:49)
[2021-02-01] MEDS: FOLIC ACID/VITAMIN B COMP W-C TABLET PO SCH (09:49)
[2021-02-01] MEDS: ASCORBIC ACID 500 MG TABLET PO SCH ×2 (09:49→21:59)
[2021-02-01] MEDS: LOSARTAN POTASSIUM 50 MG TABLET PO SCH ×2 (10:13→19:05)
[2021-02-01 11:38] VITALS: BP 109/45
[2021-02-01] MEDS: CEFTRIAXONE 2 G in DEXTROSE 5% WATER 50 ML IV SCH (13:18)
[2021-02-01 16:01] VITALS: BP 114/44
[2021-02-01 20:00] VITALS: BP 113/60
[2021-02-01] MEDS: DOXAZOSIN MESYLATE 4MG TABLET PO SCH (21:59)
[2021-02-01] MEDS: FAMOTIDINE 20MG TABLET PO SCH (21:59)
[2021-02-02] VITALS: BP 126/61
[2021-02-02 04:30] VITALS: BP 147/63
[2021-02-02] MEDS: METRONIDAZOLE 250MG TABLET PO SCH ×3 (06:39→21:40)
[2021-02-02] MEDS: SILDENAFIL CITRATE 20MG TABLET PO SCH ×3 (06:39→21:40)
[2021-02-02] MEDS: BLOOD SUGAR DIAGNOSTIC STRIP TEST SCH ×4 (06:43→21:02)
[2021-02-02] MEDS: INSULIN LISPRO 100 UNITS/ML SUBCUT SCH ×4 (07:45→21:00)
[2021-02-02 08:00] VITALS: BP 147/55
[2021-02-02] MEDS: MEGESTROL ACETATE 400 MG/10 ML UDC PO SCH (08:02)
[2021-02-02] MEDS: ZINC SULFATE 220 MG ( 50 ) CAPSULE PO SCH (08:02)
[2021-02-02] MEDS: SEVELAMER CARBONATE 800 MG TABLET PO SCH ×3 (08:02→17:08)
[2021-02-02] MEDS: POTASSIUM-SODIUM PHOSPHATE POWDER PACKET PO SCH ×2 (08:02→17:08)
[2021-02-02] MEDS: ASCORBIC ACID 500 MG TABLET PO SCH ×2 (08:02→21:40)
[2021-02-02] MEDS: FOLIC ACID/VITAMIN B COMP W-C TABLET PO SCH (08:02)
[2021-02-02] MEDS: CEFTRIAXONE 2 G in DEXTROSE 5% WATER 50 ML IV SCH (08:02)
[2021-02-02] MEDS: CHOLECALCIFEROL (D3) 1000 UNIT TABLET PO SCH (08:02)
[2021-02-02] MEDS: SODIUM HYPOCHLORITE 0.125% 473ML SOLUTION TOP SCH (09:00)
[2021-02-02] MEDS: AMLODIPINE 10MG TABLET PO SCH (09:00)
[2021-02-02] MEDS: LOSARTAN POTASSIUM 50 MG TABLET PO SCH ×2 (09:00→17:08)
[2021-02-02 11:56] VITALS: BP 157/76
[2021-02-02] MEDS ORDERED: HEPARIN SODIUM 1,000 UNIT/1ML VIAL IV SCH (14:00)
[2021-02-02 16:07] LABS: BASOPHILS % 0.3 % (0.0-2.0); EOSINOPHILS % 0.6 % (0.0-5.0); HEMOGLOBIN. 7.1 g/dL (12.0-16.0); LYMPHOCYTES % 14.1 % (20.0-50.0); MEAN CORPUSCULAR HEMOGLOBIN 27.5 pg (28.0-32.0); MEAN CORPUSCULAR VOLUME 85.2 fL (81.0-99.0); MEAN PLATELET VOLUME 10.2 fl (7.4-10.4); MONOCYTES % 4.5 % (2.0-8.0); NEUTROPHILS % 80.5 % (40.0-76.0); PLATELET 55 x1000/uL (130-400); RED BLOOD CELL COUNT 2.58 mill/uL (4.2-5.4)
[2021-02-02 16:20] VITALS: BP 159/57
[2021-02-02] MEDS ORDERED: POTASSIUM CHLORIDE 20MEQ TABLET SR PO NR (17:44)
[2021-02-02 20:00] VITALS: BP 159/63
[2021-02-02] MEDS: DOXAZOSIN MESYLATE 4MG TABLET PO SCH (21:40)
[2021-02-02] MEDS: FAMOTIDINE 20MG TABLET PO SCH (21:40)
[2021-02-03] VITALS: BP 136/59
[2021-02-03] MEDS: SILDENAFIL CITRATE 20MG TABLET PO SCH ×3 (05:51→21:33)
[2021-02-03] MEDS: METRONIDAZOLE 250MG TABLET PO SCH ×3 (05:51→21:33)
[2021-02-03] MEDS: BLOOD SUGAR DIAGNOSTIC STRIP TEST SCH ×4 (06:36→20:36)
[2021-02-03] MEDS: INSULIN LISPRO 100 UNITS/ML SUBCUT SCH ×4 (07:50→20:36)
[2021-02-03] MEDS: SEVELAMER CARBONATE 800 MG TABLET PO SCH ×3 (07:50→17:20)
[2021-02-03 08:00] VITALS: BP 140/54
[2021-02-03] MEDS: SODIUM HYPOCHLORITE 0.125% 473ML SOLUTION TOP SCH (09:00)
[2021-02-03] MEDS: CHOLECALCIFEROL (D3) 1000 UNIT TABLET PO SCH (09:00)
[2021-02-03] MEDS: MEGESTROL ACETATE 400 MG/10 ML UDC PO SCH (09:00)
[2021-02-03] MEDS: POTASSIUM-SODIUM PHOSPHATE POWDER PACKET PO SCH ×2 (09:00→16:22)
[2021-02-03] MEDS: FOLIC ACID/VITAMIN B COMP W-C TABLET PO SCH (09:00)
[2021-02-03] MEDS: ASCORBIC ACID 500 MG TABLET PO SCH ×2 (09:00→20:36)
[2021-02-03] MEDS: ZINC SULFATE 220 MG ( 50 ) CAPSULE PO SCH (09:00)
[2021-02-03] MEDS: CEFTRIAXONE 2 G in DEXTROSE 5% WATER 50 ML IV SCH (09:05)
[2021-02-03] MEDS: DEXT 5%/0.45% NACL 1000ML 1,000 ML IV SCH (09:05)
[2021-02-03] MEDS: LOSARTAN POTASSIUM 50 MG TABLET PO SCH ×2 (09:05→16:22)
[2021-02-03] MEDS: AMLODIPINE 10MG TABLET PO SCH (09:06)
[2021-02-03] MEDS ORDERED: POTASSIUM CHLORIDE INJ 40 MEQ in DEXT 5% WATER 250 ML IV ONE (10:45)
[2021-02-03 12:00] VITALS: BP 132/81
[2021-02-03] MEDS ORDERED: POTASSIUM CHLORIDE INJ 40 MEQ in DEXT 5% WATER 250 ML IV NR (12:00)
[2021-02-03 16:00] VITALS: BP 148/61
[2021-02-03 20:00] VITALS: BP 145/62
[2021-02-03] MEDS: FAMOTIDINE 20MG TABLET PO SCH (20:36)
[2021-02-03] MEDS: DOXAZOSIN MESYLATE 4MG TABLET PO SCH (20:36)
[2021-02-03] MEDS: PANTOPRAZOLE SODIUM 40 MG/VIAL IV SCH (20:46)
[2021-02-04] VITALS: BP 151/62
[2021-02-04 04:00] VITALS: BP 141/56
[2021-02-04] MEDS: METRONIDAZOLE 250MG TABLET PO SCH ×3 (05:18→21:05)
[2021-02-04] MEDS: SILDENAFIL CITRATE 20MG TABLET PO SCH ×3 (05:18→21:04)
[2021-02-04] MEDS: BLOOD SUGAR DIAGNOSTIC STRIP TEST SCH ×4 (06:20→20:53)
[2021-02-04 06:55] LABS: INR 1.2; PARTIAL THROMBOPLASTIN TIME 34.2 sec (23.4-31.0)
[2021-02-04 07:03] LABS: CHLORIDE 108 mEq/L (98-107)
[2021-02-04 07:04] LABS: BASOPHILS % 0.3 % (0.0-2.0); EOSINOPHILS % 0.5 % (0.0-5.0); HEMATOCRIT. 23.9 % (36.0-48.0); HEMOGLOBIN. 7.7 g/dL (12.0-16.0); LYMPHOCYTES % 26.4 % (20.0-50.0); MEAN CORPUSCULAR HEMOGLOBIN 27.5 pg (28.0-32.0); MEAN CORPUSCULAR VOLUME 85.2 fL (81.0-99.0); NEUTROPHILS % 68.8 % (40.0-76.0); PLATELET 61 x1000/uL (130-400)
[2021-02-04] MEDS: SEVELAMER CARBONATE 800 MG TABLET PO SCH ×4 (07:50→18:19)
[2021-02-04] MEDS: INSULIN LISPRO 100 UNITS/ML SUBCUT SCH ×4 (07:50→20:53)
[2021-02-04] MEDS: CEFTRIAXONE 2 G in DEXTROSE 5% WATER 50 ML IV SCH (08:39)
[2021-02-04] MEDS: PANTOPRAZOLE SODIUM 40 MG/VIAL IV SCH ×2 (08:39→21:04)
[2021-02-04] MEDS: DEXT 5%/0.45% NACL 1000ML 1,000 ML IV SCH (08:41)
[2021-02-04] MEDS: POTASSIUM-SODIUM PHOSPHATE POWDER PACKET PO SCH ×2 (09:00→18:09)
[2021-02-04] MEDS: LOSARTAN POTASSIUM 50 MG TABLET PO SCH ×2 (09:00→17:00)
[2021-02-04] MEDS: CHOLECALCIFEROL (D3) 1000 UNIT TABLET PO SCH (09:00)
[2021-02-04] MEDS: ZINC SULFATE 220 MG ( 50 ) CAPSULE PO SCH (09:00)
[2021-02-04] MEDS: AMLODIPINE 10MG TABLET PO SCH (09:00)
[2021-02-04] MEDS: MEGESTROL ACETATE 400 MG/10 ML UDC PO SCH (09:00)
[2021-02-04] MEDS: ASCORBIC ACID 500 MG TABLET PO SCH ×2 (09:00→21:04)
[2021-02-04] MEDS: FOLIC ACID/VITAMIN B COMP W-C TABLET PO SCH (09:00)
[2021-02-04 12:00] VITALS: BP 151/63
[2021-02-04] MEDS ORDERED: FENTANYL CITRATE/PF 50MCG/ML 2ML VIAL ONE (12:47)
[2021-02-04] MEDS ORDERED: MIDAZOLAM HCL 5 MG/5 ML VIAL ONE (12:47)
[2021-02-04] MEDS ORDERED: LIDOCAINE HCL/PF 1% 10 MG/ML 5ML VIAL ONE (12:48)
[2021-02-04] MEDS ORDERED: SODIUM CHLORIDE 0.9% 10ML VIAL ONE (13:00)
[2021-02-04] MEDS ORDERED: MIDAZOLAM HCL 2 MG/2 ML VIAL IV PRN (13:02)
[2021-02-04 16:00] VITALS: BP 93/66
[2021-02-04] MEDS ORDERED: HEPARIN SODIUM 1,000 UNIT/1ML VIAL IV NR (16:30)
[2021-02-04] MEDS: SODIUM HYPOCHLORITE 0.125% 473ML SOLUTION TOP SCH (18:16)
[2021-02-04 20:00] VITALS: BP 154/62
[2021-02-04] MEDS: FAMOTIDINE 20MG TABLET PO SCH (21:04)
[2021-02-04] MEDS: DOXAZOSIN MESYLATE 4MG TABLET PO SCH (21:05)
[2021-02-05] VITALS (7 sets, daily range): BP systolic 125–158; BP diastolic 56–77
[2021-02-05] MEDS: METRONIDAZOLE 250MG TABLET PO SCH ×3 (06:20→22:54)
[2021-02-05] MEDS: SILDENAFIL CITRATE 20MG TABLET PO SCH ×3 (06:20→21:05)
[2021-02-05] MEDS: BLOOD SUGAR DIAGNOSTIC STRIP TEST SCH ×4 (06:20→20:58)
[2021-02-05] MEDS: SEVELAMER CARBONATE 800 MG TABLET PO SCH ×4 (06:55→16:36)
[2021-02-05] MEDS: INSULIN LISPRO 100 UNITS/ML SUBCUT SCH ×4 (06:55→21:10)
[2021-02-05 06:57] LABS: BASOPHILS % 0.3 % (0.0-2.0); EOSINOPHILS % 0.6 % (0.0-5.0); HEMATOCRIT. 21.6 % (36.0-48.0); HEMOGLOBIN. 7.1 g/dL (12.0-16.0); LYMPHOCYTES % 20.9 % (20.0-50.0); MEAN CORPUSCULAR HEMOGLOBIN 28.3 pg (28.0-32.0); MEAN CORPUSCULAR VOLUME 85.7 fL (81.0-99.0); MEAN PLATELET VOLUME 10.5 fl (7.4-10.4); NEUTROPHILS % 74.2 % (40.0-76.0); RED BLOOD CELL COUNT 2.52 mill/uL (4.2-5.4)
[2021-02-05 08:25] LABS: PLATELET 50 x1000/uL (130-400)
[2021-02-05] MEDS: PANTOPRAZOLE SODIUM 40 MG/VIAL IV SCH ×2 (08:29→20:58)
[2021-02-05] MEDS: LOSARTAN POTASSIUM 50 MG TABLET PO SCH ×2 (08:29→16:36)
[2021-02-05] MEDS: MEGESTROL ACETATE 400 MG/10 ML UDC PO SCH (08:29)
[2021-02-05] MEDS: POTASSIUM-SODIUM PHOSPHATE POWDER PACKET PO SCH ×2 (08:29→16:36)
[2021-02-05] MEDS: FOLIC ACID/VITAMIN B COMP W-C TABLET PO SCH (08:31)
[2021-02-05] MEDS: AMLODIPINE 10MG TABLET PO SCH (08:31)
[2021-02-05] MEDS: CHOLECALCIFEROL (D3) 1000 UNIT TABLET PO SCH (08:31)
[2021-02-05] MEDS: ASCORBIC ACID 500 MG TABLET PO SCH ×2 (08:31→20:58)
[2021-02-05] MEDS: CEFTRIAXONE 2 G in DEXTROSE 5% WATER 50 ML IV SCH (08:32)
[2021-02-05] MEDS: ZINC SULFATE 220 MG ( 50 ) CAPSULE PO SCH (08:42)
[2021-02-05] MEDS ORDERED: POTASSIUM CHLORIDE 20MEQ TABLET SR PO NR (09:30)
[2021-02-05] MEDS: SODIUM HYPOCHLORITE 0.125% 473ML SOLUTION TOP SCH (09:59)
[2021-02-05] MEDS: DEXT 5%/0.45% NACL 1000ML 1,000 ML IV SCH (10:03)
[2021-02-05 10:38] LABS: PLATELET ESTIMATE MARKEDLY DECREASED
[2021-02-05] MEDS: DOXAZOSIN MESYLATE 4MG TABLET PO SCH (20:58)
[2021-02-05] MEDS: FAMOTIDINE 20MG TABLET PO SCH (20:58)
[2021-02-06] VITALS (7 sets, daily range): BP systolic 100–135; BP diastolic 47–60
[2021-02-06] MEDS: METRONIDAZOLE 250MG TABLET PO SCH ×3 (06:01→22:02)
[2021-02-06] MEDS: SILDENAFIL CITRATE 20MG TABLET PO SCH ×3 (06:01→22:02)
[2021-02-06 06:40] LABS: HEMOGLOBIN. 7.1 g/dL (12.0-16.0); MEAN CORPUSCULAR HEMOGLOBIN 27.5 pg (28.0-32.0); MEAN CORPUSCULAR VOLUME 85.6 fL (81.0-99.0); MEAN PLATELET VOLUME 10.8 fl (7.4-10.4); RED BLOOD CELL COUNT 2.57 mill/uL (4.2-5.4); RED CELL DISTRIBUTION WIDTH 18.1 % (11.6-14.6)
[2021-02-06] MEDS: BLOOD SUGAR DIAGNOSTIC STRIP TEST SCH ×4 (07:58→21:55)
[2021-02-06] MEDS: SEVELAMER CARBONATE 800 MG TABLET PO SCH ×3 (08:47→17:54)
[2021-02-06] MEDS: POTASSIUM-SODIUM PHOSPHATE POWDER PACKET PO SCH ×2 (08:48→17:55)
[2021-02-06] MEDS: FOLIC ACID/VITAMIN B COMP W-C TABLET PO SCH (08:48)
[2021-02-06] MEDS: AMLODIPINE 10MG TABLET PO SCH (09:13)
[2021-02-06] MEDS: ASCORBIC ACID 500 MG TABLET PO SCH ×2 (09:14→21:46)
[2021-02-06] MEDS: ZINC SULFATE 220 MG ( 50 ) CAPSULE PO SCH (09:14)
[2021-02-06] MEDS: LOSARTAN POTASSIUM 50 MG TABLET PO SCH ×2 (09:14→17:55)
[2021-02-06] MEDS: CHOLECALCIFEROL (D3) 1000 UNIT TABLET PO SCH (09:14)
[2021-02-06] MEDS: CEFTRIAXONE 2 G in DEXTROSE 5% WATER 50 ML IV SCH (09:15)
[2021-02-06] MEDS: SODIUM HYPOCHLORITE 0.125% 473ML SOLUTION TOP SCH (09:15)
[2021-02-06] MEDS: PANTOPRAZOLE SODIUM 40 MG/VIAL IV SCH ×2 (09:15→21:46)
[2021-02-06] MEDS: MEGESTROL ACETATE 400 MG/10 ML UDC PO SCH (09:20)
[2021-02-06] MEDS: INSULIN LISPRO 100 UNITS/ML SUBCUT SCH ×4 (09:20→21:00)
[2021-02-06] MEDS ORDERED: MAGNESIUM 1 G PREMIX 100 ML IV SCH (11:00)
[2021-02-06] MEDS: DEXT 5%/0.45% NACL 1000ML 1,000 ML IV SCH (12:19)
[2021-02-06 12:20] LABS: PLATELET ESTIMATE MARKEDLY DECREASED
[2021-02-06 12:23] LABS: PLATELET 47 x1000/uL (130-400)
[2021-02-06] MEDS: FAMOTIDINE 20MG TABLET PO SCH (21:46)
[2021-02-06] MEDS: DOXAZOSIN MESYLATE 4MG TABLET PO SCH (21:46)
[2021-02-07] VITALS (9 sets, daily range): BP systolic 91–151; BP diastolic 38–122
[2021-02-07] MEDS: METRONIDAZOLE 250MG TABLET PO SCH ×2 (06:43→14:53)
[2021-02-07] MEDS: SILDENAFIL CITRATE 20MG TABLET PO SCH ×3 (06:43→22:00)
[2021-02-07 06:44] LABS: BASOPHILS % 0.2 % (0.0-2.0); EOSINOPHILS % 0.1 % (0.0-5.0); HEMATOCRIT. 21.5 % (36.0-48.0); LYMPHOCYTES % 10.5 % (20.0-50.0); MEAN CORPUSCULAR VOLUME 86.2 fL (81.0-99.0); MEAN PLATELET VOLUME 11.7 fl (7.4-10.4); MONOCYTES % 2.6 % (2.0-8.0); NEUTROPHILS % 86.6 % (40.0-76.0); RED CELL DISTRIBUTION WIDTH 18.7 % (11.6-14.6)
[2021-02-07 06:55] LABS: PLATELET 47 x1000/uL (130-400)
[2021-02-07] MEDS: BLOOD SUGAR DIAGNOSTIC STRIP TEST SCH ×4 (07:31→21:00)
[2021-02-07] MEDS: INSULIN LISPRO 100 UNITS/ML SUBCUT SCH ×4 (08:50→21:00)
[2021-02-07] MEDS: AMLODIPINE 10MG TABLET PO SCH (09:00)
[2021-02-07] MEDS: LOSARTAN POTASSIUM 50 MG TABLET PO SCH ×2 (09:00→17:30)
[2021-02-07] MEDS: POTASSIUM-SODIUM PHOSPHATE POWDER PACKET PO SCH ×2 (09:59→18:33)
[2021-02-07] MEDS: PANTOPRAZOLE SODIUM 40 MG/VIAL IV SCH ×2 (12:46→21:58)
[2021-02-07] MEDS: MEGESTROL ACETATE 400 MG/10 ML UDC PO SCH (12:46)
[2021-02-07] MEDS: ASCORBIC ACID 500 MG TABLET PO SCH ×2 (12:47→21:00)
[2021-02-07] MEDS: FOLIC ACID/VITAMIN B COMP W-C TABLET PO SCH (12:47)
[2021-02-07] MEDS: SEVELAMER CARBONATE 800 MG TABLET PO SCH ×3 (12:47→18:33)
[2021-02-07] MEDS: CEFTRIAXONE 2 G in DEXTROSE 5% WATER 50 ML IV SCH (12:48)
[2021-02-07] MEDS: SODIUM HYPOCHLORITE 0.125% 473ML SOLUTION TOP SCH (12:49)
[2021-02-07] MEDS: CHOLECALCIFEROL (D3) 1000 UNIT TABLET PO SCH (12:59)
[2021-02-07] MEDS: DEXT 5%/0.45% NACL 1000ML 1,000 ML IV SCH (14:53)
[2021-02-07] MEDS: ZINC SULFATE 220 MG ( 50 ) CAPSULE PO SCH (15:01)
[2021-02-07] MEDS: DOXAZOSIN MESYLATE 4MG TABLET PO SCH (21:00)
[2021-02-07] MEDS: FAMOTIDINE 20MG TABLET PO SCH (21:59)
[2021-02-08] VITALS (40 sets, daily range): BP systolic 62–146; BP diastolic 34–66
[2021-02-08] MEDS: METRONIDAZOLE 250MG TABLET PO SCH (00:31)
[2021-02-08] MEDS: DEXT 5%/0.45% NACL 1000ML 1,000 ML IV SCH (03:55)
[2021-02-08 06:14] LABS: HEMOGLOBIN 8.5 g/dL (12.0-16.0)
[2021-02-08 06:28] LABS: INR 1.4; PROTHROMBIN TIME 14.9 sec (9.6-11.0)
[2021-02-08] MEDS ORDERED: VASOPRESSIN 20 UNIT in SODIUM CHLORIDE 0.9% 99 ML IV PRN (06:45)
[2021-02-08] MEDS ORDERED: NOREPINEPHRINE 32 MG in DEXT 5% WATER 218 ML IV PRN (06:45)
[2021-02-08] MEDS: BLOOD SUGAR DIAGNOSTIC STRIP TEST SCH (07:50)
[2021-02-08] MEDS: INSULIN LISPRO 100 UNITS/ML SUBCUT SCH (08:20)
[2021-02-08 08:27] LABS: HEMOGLOBIN. 8.5 g/dL (12.0-16.0); MEAN CORPUSCULAR HEMOGLOBIN 29.2 pg (28.0-32.0); MEAN CORPUSCULAR VOLUME 89.5 fL (81.0-99.0); MEAN PLATELET VOLUME 9.5 fl (7.4-10.4); PLATELET 85 x1000/uL (130-400); RED CELL DISTRIBUTION WIDTH 18.4 % (11.6-14.6)
[2021-02-08 08:37] LABS: CHLORIDE 105 mEq/L (98-107)
[2021-02-08 08:49] LABS: BG BASE EXCESS 3.1 mmol/L (-2.0-2.0); BG CARBOXYHEMOGLOBIN 0.3 % (0.5-1.5); BG DEOXYHEMOGLOBIN 0.7 % (0.0-5.0); BG FRACTION INSPIRED OXYGEN 100; BG HCO3 ACT 27.5 mmol/L (22.0-26.0); BG METHEMOGLOBIN 0.3 % (0.0-1.5); BG OXYGEN SATURATION 99.3 % (92.0-98.5); BG OXYHEMOGLOBIN 98.7 % (94.0-97.0); BG PCO2 41.4 mmHg (35.0-45.0); BG PO2 410.3 mmHg (75.0-100.0); BG SAMPLE SITE RIGHT BRACHIAL; BG TOTAL HEMOGLOBIN 10.2 g/dL (12.0-18.0); BG VENT MODE VENT - AC
[2021-02-08] MEDS: LOSARTAN POTASSIUM 50 MG TABLET PO SCH (09:00)
[2021-02-08] MEDS: AMLODIPINE 10MG TABLET PO SCH (09:00)
[2021-02-08] MEDS ORDERED: CEFTRIAXONE 2 G in DEXTROSE 5% WATER 50 ML IV SCH (09:00)
[2021-02-08] MEDS: SEVELAMER CARBONATE 800 MG TABLET PO SCH (09:46)
[2021-02-08] MEDS: FOLIC ACID/VITAMIN B COMP W-C TABLET PO SCH (09:46)
[2021-02-08] MEDS: MEGESTROL ACETATE 400 MG/10 ML UDC PO SCH (09:46)
[2021-02-08] MEDS: PANTOPRAZOLE SODIUM 40 MG/VIAL IV SCH (09:46)
[2021-02-08] MEDS: POTASSIUM-SODIUM PHOSPHATE POWDER PACKET PO SCH (09:46)
[2021-02-08] MEDS: CHOLECALCIFEROL (D3) 1000 UNIT TABLET PO SCH (09:47)
[2021-02-08] MEDS: ZINC SULFATE 220 MG ( 50 ) CAPSULE PO SCH (09:47)
[2021-02-08] MEDS: ASCORBIC ACID 500 MG TABLET PO SCH (09:47)
[2021-02-08] MEDS: SODIUM HYPOCHLORITE 0.125% 473ML SOLUTION TOP SCH (09:48)
[2021-02-08] MEDS ORDERED: MAGNESIUM 2 G PREMIX 50 ML IV SCH (10:00)
[2021-02-08] MEDS ORDERED: LORAZEPAM 2MG/ML CPJ IV PRN (10:30)
[2021-02-08] MEDS ORDERED: MORPHINE SULFATE 250 MG in DEXT 5% WATER 240 ML IV PRN (10:30)
[2021-02-08] MEDS ORDERED: KCL 20MEQ/100ML PREMIX 100 ML IV NR (11:00)
[2021-02-08 11:20] LABS: PLATELET ESTIMATE DECREASED
[2021-02-08] MEDS ORDERED: ATROPINE SULFATE 1% OPHTH 2ML SL PRN (12:00)
[2021-02-08] MEDS ORDERED: EPINEPHRINE 0.1MG/ML (1:10,000) 10ML SYR ONE (13:06)
[2021-02-08] MEDS ORDERED: VECURONIUM BROMIDE 10 MG/VIAL IV ONE (14:01)
[2021-02-08] MEDS ORDERED: ETOMIDATE 2MG/ML 10ML VIAL IV ONE (14:01)
== END 2021-02-08 15:10 | DRG 474 ==
LOC: ER 13:37 → 7WST 16:03 → EDBEDREQ 16:10 → EDBEDREQTM 16:10 → ENRESERV 16:35 → 6WST 17:59 → 3WST 01-18 01:08 → 6EST 01-24 22:44 → 6WST 01-29 16:57 → CVICU 02-08 07:10
PROVIDERS: ADMIT Internal Medicine; ATTEND Internal Medicine
PROC: 02HV33Z Insertion of Infusion Device into Superior Vena Cava, Percutaneous Approach (ICD-10-PCS; 2021-01-17)
PROC: B548ZZA Ultrasonography of Superior Vena Cava, Guidance (ICD-10-PCS; 2021-01-17)
PROC: 5A1D70Z Performance of Urinary Filtration, Intermittent, Less than 6 Hours Per Day (ICD-10-PCS; 2021-01-17)
PROC: 30233N1 Transfusion of Nonautologous Red Blood Cells into Peripheral Vein, Percutaneous Approach (ICD-10-PCS; principal; 2021-01-18)
PROC: 5A1D70Z Performance of Urinary Filtration, Intermittent, Less than 6 Hours Per Day (ICD-10-PCS; 2021-01-18)
PROC: 0KBP0ZZ Excision of Left Hip Muscle, Open Approach (ICD-10-PCS; 2021-01-21)
PROC: 0KBN0ZZ Excision of Right Hip Muscle, Open Approach (ICD-10-PCS; 2021-01-21)
PROC: 5A1D70Z Performance of Urinary Filtration, Intermittent, Less than 6 Hours Per Day (ICD-10-PCS; 2021-01-21)
PROC: 5A1D70Z Performance of Urinary Filtration, Intermittent, Less than 6 Hours Per Day (ICD-10-PCS; 2021-01-23)
PROC: 5A1D70Z Performance of Urinary Filtration, Intermittent, Less than 6 Hours Per Day (ICD-10-PCS; 2021-01-24)
PROC: 5A1D70Z Performance of Urinary Filtration, Intermittent, Less than 6 Hours Per Day (ICD-10-PCS; 2021-01-25)
PROC: 5A1D70Z Performance of Urinary Filtration, Intermittent, Less than 6 Hours Per Day (ICD-10-PCS; 2021-01-27)
PROC: B548ZZA Ultrasonography of Superior Vena Cava, Guidance (ICD-10-PCS; 2021-01-28)
PROC: 02HV33Z Insertion of Infusion Device into Superior Vena Cava, Percutaneous Approach (ICD-10-PCS; 2021-01-28)
PROC: B5181ZA Fluoroscopy of Superior Vena Cava using Low Osmolar Contrast, Guidance (ICD-10-PCS; 2021-01-28)
PROC: 5A1D70Z Performance of Urinary Filtration, Intermittent, Less than 6 Hours Per Day (ICD-10-PCS; 2021-01-28)
PROC: 0Y6C0Z1 Detachment at Right Upper Leg, High, Open Approach (ICD-10-PCS; 2021-01-29)
PROC: 5A1D70Z Performance of Urinary Filtration, Intermittent, Less than 6 Hours Per Day (ICD-10-PCS; 2021-01-30)
PROC: 5A1D70Z Performance of Urinary Filtration, Intermittent, Less than 6 Hours Per Day (ICD-10-PCS; 2021-02-01)
PROC: 5A1D70Z Performance of Urinary Filtration, Intermittent, Less than 6 Hours Per Day (ICD-10-PCS; 2021-02-02)
PROC: 5A1D70Z Performance of Urinary Filtration, Intermittent, Less than 6 Hours Per Day (ICD-10-PCS; 2021-02-03)
PROC: 0DH63UZ Insertion of Feeding Device into Stomach, Percutaneous Approach (ICD-10-PCS; 2021-02-04)
PROC: 5A1D70Z Performance of Urinary Filtration, Intermittent, Less than 6 Hours Per Day (ICD-10-PCS; 2021-02-04)
PROC: 5A1D70Z Performance of Urinary Filtration, Intermittent, Less than 6 Hours Per Day (ICD-10-PCS; 2021-02-07)
PROC: 0BH17EZ Insertion of Endotracheal Airway into Trachea, Via Natural or Artificial Opening (ICD-10-PCS; 2021-02-08)
PROC: 5A1935Z Respiratory Ventilation, Less than 24 Consecutive Hours (ICD-10-PCS; 2021-02-08)
PROC: 30233R1 Transfusion of Nonautologous Platelets into Peripheral Vein, Percutaneous Approach (ICD-10-PCS; 2021-02-08)
PROC: 5A12012 Performance of Cardiac Output, Single, Manual (ICD-10-PCS; 2021-02-08)
DX: T87.43 Infection of amputation stump, right lower extremity (principal); A41.4 Sepsis due to anaerobes; N17.0 Acute kidney failure with tubular necrosis; L89.154 Pressure ulcer of sacral region, stage 4; N18.6 End stage renal disease; E43 Unspecified severe protein-calorie malnutrition; J96.00 Acute respiratory failure, unspecified whether with hypoxia or hypercapnia; R65.21 Severe sepsis with septic shock; J69.0 Pneumonitis due to inhalation of food and vomit; M46.28 Osteomyelitis of vertebra, sacral and sacrococcygeal region; I13.2 Hypertensive heart and chronic kidney disease with heart failure and with stage 5 chronic kidney disease, or end stage renal disease; I16.1 Hypertensive emergency; G93.40 Encephalopathy, unspecified; I44.2 Atrioventricular block, complete; I50.32 Chronic diastolic (congestive) heart failure; I96 Gangrene, not elsewhere classified; I46.9 Cardiac arrest, cause unspecified; Z51.5 Encounter for palliative care; D63.8 Anemia in other chronic diseases classified elsewhere; E10.22 Type 1 diabetes mellitus with diabetic chronic kidney disease; F03.90 Unspecified dementia, unspecified severity, without behavioral disturbance, psychotic disturbance, mood disturbance, and anxiety; Z20.822 Contact with and (suspected) exposure to COVID-19; E10.51 Type 1 diabetes mellitus with diabetic peripheral angiopathy without gangrene; E10.649 Type 1 diabetes mellitus with hypoglycemia without coma; D49.0 Neoplasm of unspecified behavior of digestive system; D63.1 Anemia in chronic kidney disease; D69.6 Thrombocytopenia, unspecified; E83.39 Other disorders of phosphorus metabolism; E83.42 Hypomagnesemia; E87.5 Hyperkalemia; E87.6 Hypokalemia; Z66 Do not resuscitate; I25.10 Atherosclerotic heart disease of native coronary artery without angina pectoris; I27.21 Secondary pulmonary arterial hypertension; I48.91 Unspecified atrial fibrillation; K27.9 Peptic ulcer, site unspecified, unspecified as acute or chronic, without hemorrhage or perforation; K44.9 Diaphragmatic hernia without obstruction or gangrene; Y83.5 Amputation of limb(s) as the cause of abnormal reaction of the patient, or of later complication, without mention of misadventure at the time of the procedure; T87.81 Dehiscence of amputation stump; K29.70 Gastritis, unspecified, without bleeding; R13.10 Dysphagia, unspecified; Z79.4 Long term (current) use of insulin; Z89.511 Acquired absence of right leg below knee; Z99.2 Dependence on renal dialysis; Z79.899 Other long term (current) drug therapy; Z86.718 Personal history of other venous thrombosis and embolism; Z68.22 Body mass index [BMI] 22.0-22.9, adult
CPT/HCPCS: 36415; 36556; 36600; 71045; 72192; 73552; 73590; 76937; 77001; 80048; 80053; 80061; 81003; 82040; 82140; 82270; 82375; 82550; 82553; 82805; 82962; 83036; 83605; 83735; 83880; 83970; 84100; 84132; 84134; 84439; 84443; 84484; 85014; 85018; 85025; 85027; 85049; 85384; 85651; 86140; 86705; 86706; 86803; 86850; 86900; 86920; 87070; 87340; 87426; 88307; 88311; 90585; 92950; 93005; 93923; 93970; 94002; 94003; 99285; C1725; C1752; C1769; C9113; J0690; J0692; J0696; J0885; J1200; J1642; J1644; J1650; J1815; J2060; J2250; J2274; J2405; J2704; J2795; J3010; J3370; J3475; J3480; J3490; J7040; J7050; J7060; P9016; P9034; U0003; A4315